=== PATIENT | male | born 1940 | race Caucasian/White ===

== ENCOUNTER 2021-02-04 11:29 | Emergency (ER) | payer OTHER, MEDICARE, SELFPAY ==
[2021-02-04 11:36] VITALS: BP 152/76; PULSE 100; RESP 18; TEMP 36.7; O2SAT 98; BMI 25.8
[2021-02-04 12:57] LABS: COVID-19 Test Negative (Negative)
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
--- NOTE | 2021-02-04 13:53 | MHC.CM.ED ---
Received case management consult from [facility] RO[facility]. Patient came to ER for a Covid screen. Per family patient was supposed to go to [facility] for short term rehab but needed a Covid screen. Covid is negative. Referral to [facility] made via [employer]. Patient accepted at [facility] and can leave ER at 3pm. [facility] booked. Med [facility] with chart. Patient, Etelvina ERVIN and Sunshine ROCHA aware. Continue to monitor for d/c needs.
[2021-02-04 14:00] VITALS: RESP 16
--- NOTE | 2021-02-04 14:02 | PC.NURSE ---
pt dc. plan for chair guicho to str. to be here by 1500
== END 2021-02-04 15:45 | disposition home or self-care (01) ==
PROVIDERS: Physician Assistant; Emergency Provider Emergency Medicine; PCP Physician Assistant Medical
DX: Z20.822 Contact with and (suspected) exposure to COVID-19 (principal); I12.9 Hypertensive chronic kidney disease with stage 1 through stage 4 chronic kidney disease, or unspecified chronic kidney disease; N18.9 Chronic kidney disease, unspecified; D64.9 Anemia, unspecified
CPT/HCPCS: 36415; 87635; 99283; 99284

== ENCOUNTER 2022-05-25 11:48 | Emergency (ER) | payer OTHER, SELFPAY ==
--- NOTE | ~2022-05-25 | XR_ITS ---
Indication: Pain, no trauma EXAMINATION: Left hand. 3 views Findings; Flexion at the level of the fingers limits evaluation. Degenerative changes are noted in the PIP and DIP joints here. There is no evidence for an acute fracture or dislocation. Some degeneration at the base of the thumb is also noted. No convincing evidence for an acute bony erosion. XR/XR hand wrist LT IMPRESSION: Degenerative changes. No acute finding.
[2022-05-25 12:01] VITALS: BP 140/78; PULSE 80; RESP 19; TEMP 36.6; O2SAT 98; BMI 24.2
[2022-05-25 13:09] LABS: MANUAL DIFF FLAG NO
[2022-05-25 13:16] LABS: Basophils Percent Auto 0.2 % (0-2); Eosinophils Absolute Auto 0.1 X10*3/uL (0.0-0.4); Eosinophils Percent Auto 0.6 % (0-4); Hemoglobin 13.6 g/dl (14.0-18.0); Imm Gran Abs Auto 0.06 X10*3/uL (0.00-0.03); Imm Gran Pct Auto 0.7 % (0.0-0.4); Lymphocytes Absolute Auto 0.9 X10*3/uL (1.2-4.9); Lymphocytes Percent Auto 9.9 % (20-40); Mean Corpuscular HGB Conc 33.2 g/dl (31.0-36.0); Mean Corpuscular Hemoglobin 30.9 pg (27.0-33.0); Mean Corpuscular Volume 93.2 fL (80.0-98.0); Mean Platelet Volume 10.4 fL (9.4-12.4); Monocytes Percent Auto 11.9 % (2-11); Neutrophils Absolute Auto 6.7 x10*3/uL (2.0-8.3); Neutrophils Percent Auto 76.7 % (45-73); Platelet Count 187 X10*3/uL (160-400); Red Cell Distribution Width 12.6 % (11.0-16.0); White Blood Count 8.7 X10*3/uL (4.8-10.8)
[2022-05-25 13:20] LABS: Appearance Urine CLEAR; Color Urine YELLOW; Glucose Urine UA NEG (NEG); Leukocyte Esterase Urine NEG (NEG); Nitrite Urine NEG (NEG); PH 5.5 (5.0-8.0); Specific Gravity - Urine 1.025 (1.005-1.025); Urine Blood NEG (NEG); Urine Ketones NEG (NEG); Urine Protein NEG (NEG-TRACE)
[2022-05-25 13:24] LABS: Anion Gap 12 (12-20); Blood Urea Nitrogen 23 mg/dL (9-16); Calcium 9.1 mg/dL (8.4-10.2); Carbon Dioxide 28 mmol/L (22-29); Chloride 100 mmol/L (96-108); Creatinine Clr Calc Pharmacy 43.5; Estimated Glomerular Filt Rate 59; Glucose Random 153 mg/dL (60-115); Potassium 3.8 mmol/L (3.3-5.1); Sodium 136 mmol/L (135-145)
== END 2022-05-25 19:27 | disposition left against medical advice (07) ==
PROVIDERS: Emergency Provider Emergency Medicine; PCP Physician Assistant Medical
DX: M79.642 Pain in left hand (principal); M54.50 Low back pain, unspecified; M25.532 Pain in left wrist; Z79.899 Other long term (current) drug therapy
CPT/HCPCS: 36415; 73110; 73130; 80048; 81003; 85025; 99282; 99283

== ENCOUNTER 2023-06-30 08:00 | Emergency (ER) | payer OTHER, SELFPAY ==
--- NOTE | ~2023-06-30 | XR_ITS ---
EXAMINATION: XR ELBOW, LEFT CLINICAL INFORMATION: Left elbow pain status post fall. COMPARISON: None available. TECHNIQUE: AP, lateral, and oblique views of the left elbow. FINDINGS: There is a moderate-sized posterior olecranon spur. A small osseous fragment is seen along the posterior superior margin of the spur. Moderate adjacent dorsal soft tissue swelling is seen. Possible small joint effusion. The proximal radius is intact. Mild degenerative calcifications adjacent to the medial humeral epicondyle. XR/XR elbow LT 2V IMPRESSION: 1. Moderate-sized posterior olecranon spur with moderate adjacent dorsal soft tissue swelling. A small osseous fragment along the posterior superior margin of the spur could represent an avulsion fracture of indeterminate age. Correlate with physical exam. 2. Possible small joint effusion. No overt acute fracture.
--- NOTE | ~2023-06-30 | XR_ITS ---
EXAMINATION: XR ANKLE, LEFT CLINICAL INFORMATION: Status post fall with tenderness. COMPARISON: None available. TECHNIQUE: AP, lateral, and mortise views of the left ankle. FINDINGS: Minimal tibiotalar degenerative joint changes are seen. No acute fracture or dislocation. The tarsal bones are normally aligned. The soft tissues are unremarkable. Mild to moderate atherosclerosis is noted. XR/XR ankle LT 2V IMPRESSION: Minimal tibiotalar degenerative joint changes. No acute fracture.
--- NOTE | ~2023-06-30 | XR_ITS ---
EXAMINATION: XR WRIST, LEFT XR HAND, LEFT CLINICAL INFORMATION: And wrist pain status post fall. COMPARISON: None available. TECHNIQUE: PA, lateral, and oblique views of the left wrist and PA, lateral, and oblique views of the left hand FINDINGS: LEFT WRIST: The bones and soft tissues are normal. No fracture. Alignment is anatomic. Joint spaces are maintained. No erosions or soft tissue calcifications. LEFT HAND: The bones and soft tissues are normal. No fracture. Alignment is anatomic. Mild distal interphalangeal degenerative joint changes are seen in the third and fifth digits. No erosions or soft tissue calcifications. Mild to moderate soft tissue swelling is seen. XR/XR hand wrist LT IMPRESSION: 1. Mild to moderate soft tissue swelling without overt acute fracture. 2. Mild distal interphalangeal degenerative joint changes in the third and fifth digits most consistent with osteoarthritis.
[2023-06-30 08:14] VITALS: BP 141/64; PULSE 99; RESP 19; TEMP 36.6; O2SAT 98; BMI 26.0
--- NOTE | 2023-06-30 08:56 | ED_ITS ---
HPI - General Adult General Chief complaint: General Medical Stated complaint: L Hand ? Infection Time Seen by Provider: 06/30/23 08:56 Source: patient Mode of arrival: ambulatory Limitations: no limitations History of Present Illness HPI narrative: Patient is an 83-year-old male with history of HTN, CKD, and anemia presenting to the emergency department with complaint of pain and swelling to left elbow, wrist, and hand as well as left ankle pain after a fall 5 days prior. States it was a trip and fall. Denies hitting head. Denies loss of consciousness. Denies head, neck, or back pain. Denies headaches or changes in vision. Reports hand/wrist is primary concern. Reports he is unable to fully extend elbow, decreased ROM to fingers of left hand. Denies any numbness or tingling to extremities. MD complaint: left elbow, wrist, hand, and ankle pain Onset (ago): day(s) Location: upper extremity and lower extremity Radiation: non-radiation Severity: moderate Quality: aching Pain Consistency: constant Relieving factors: rest Exacerbating factors: movement Associated symptoms: denies other symptoms Treatments prior to arrival: none Related Data Allergies Allergy/AdvReac Type Severity Reaction Status Date / Time No Known Allergies Allergy Verified 06/30/23 08:13 Review of Systems Review of Systems: As per HPI. Yes all other systems are reviewed and are negative Constitutional: Constitutional: Reports as per HPI [facility] Past Medical History Medical History (Updated 06/30/23 @ 10:13 by Betsy Albrecht NP) Anemia CKD (chronic kidney disease) HTN (hypertension) Social History Social History Alcohol intake: never Advance Directives: No Physical Exam ED Vital Signs: Vital Signs - 24 hr 06/30/23 08:14 Temperature 98 F Pulse Rate 99 Respiratory Rate 19 Blood Pressure 141/64 H Pulse Oximetry 98 Oxygen Delivery Method Room Air BMI result Body Mass Index 26.0 Vital signs have been reviewed and appear to be correct. Blood pressure mildly elevated. Heart rate normal. Respiratory rate normal. Temperature normal. Oxygen saturation normal. Const General: cooperative, healthy appearing and no acute distress Orientation/consciousness: oriented to person, oriented to place, oriented to time and patient oriented x3 Limitations: no limitations HENMT Head: Yes normocephalic and Yes atraumatic Ears: external ears normal General nose exam: Normal external nose present Face and sinus: Yes face symmetric Mouth: oropharynx normal and moist mucous membranes Throat: Yes uvula midline Eyes Pupils: Equal, round and reactive pupils present Neck Neck: Yes normal visual inspection and Yes supple Resp Effort & Inspection: normal respiratory effort and able to speak in complete sentences Auscultation: clear to auscultation bilaterally Cardio Rate: regular rate Rhythm: regular rhythm Heart sounds: S1 normal heart sound present and S2 normal heart sound present GI Palpation (GI): Soft to palpation and nontender Auscultation: normoactive bowel sounds General: Yes no CVA tenderness Back/Spine/Pelvis Back: no CVA tenderness Skin General skin exam: elasticity normal and turgor normal Neuro General: oriented to person, oriented to place, oriented to time, patient oriented x3, moves all extremities, no focal motor deficits and CN's II-XI intact bilaterally Cranial nerves: Yes Equal, round and reactive pupils present Cognition (Neuro): normal cognition Extrem General: Yes full ROM, Yes no pedal edema and Yes no calf tenderness Right upper extremity: normal to inspection, full ROM and normal capillary refill Left upper extremity: elbow/forearm Details: abnormal to inspection Details: olecranon swelling, tenderness Location: of the olecranon, abnormal ROM Details: with range as follows (normal flexion, slightly decreased ROM with extension) and distal pulses intact; no unusual warmth, no abrasions, no lacerations, no ecchymosis and no crepitus, wrist forearm distal Details: swelling Location: of the dorsal wrist, abnormal ROM Details: with range as follows (limited in all directions), normal vascular exam and radial pulse present; no tenderness, no ecchymosis and no crepitus and hand Details: normal capillary refill, neurosensory exam normal, tenderness Location: of the dorsal hand Location: over the 4th metacarpal and over the 5th metacarpal, abnormal ROM of finger Details: unable to flex or extend (very limited ROM all fingers) Location: of all digits and swelling Location: of the dorsal hand Location: distally, over the 4th digit and over the 5th metacarpal Right lower extremity: normal to inspection, full ROM and normal capillary refill Left lower extremity: normal to inspection, full ROM, normal capillary refill and ankle Details: normal to inspection and normal ROM; no tenderness and no ecchymosis Psych Mental Status: mental status grossly normal Affect: normal affect Thought process: Normal thought process present Medical Decision Making Medical Decision Making MDM Narrative: Patient is an 83-year-old male with history of HTN, CKD, and anemia presenting to the emergency department with complaint of pain and swelling to left elbow, wrist, and hand as well as left ankle pain after a fall 5 days prior. On exam patient is awake, A+Ox3, VS WNL, afebrile, normal neurological exam without focal deficits, swelling over olecranon of left elbow, swelling to distal left wrist with slightly limited ROM, swelling to left dorsal hand with limited ROM all fingers, 2+ radial pulse, normal inspection of left ankle, no tenderness, patient ambulating with steady gait. Given reported symptoms and physical exam findings, initial differential includes fracture of elbow/wrist/hand/ankle, olecranon bursitis, contusion. X-ray notable for degenerative changes to left hand and left ankle, small avulsion fracture of left olecranon. My interpretation is in agreement with the radiologist's interpretation. Spoke with Nicol from Ortho who recommends sling for 2 days as well as gentle [id number] exercises. Will refer patient to Ortho for follow-up. Return precautions discussed at bedside. Advised patient to utilize Tylenol as needed for discomfort. Patient verbalized understanding of and agreement with plan. Differential Diagnosis Differential Diagnoses: The differential diagnosis associated with the presentation includes As per MDM. Consult Healthcare Provider Management of the patient was discussed with: [employer] (morena Camarena PA) Independent Interpretation I performed an independent interpretation of an: Plain X-Ray Interpretation: No acute ankle fracture; possible avulsion fracture of left olecranon spur with possible small joint effusion; degenerative changes to left hand, no overt fracture Radiology Impression Discussion of test interpretation with radiology: I have reviewed the radiologist's reading. Radiologist Impression: XR/XR elbow LT 2V IMPRESSION: 1.? Moderate-sized posterior olecranon spur with moderate adjacent dorsal soft tissue swelling. A small osseous fragment along the posterior superior margin of the spur could represent an avulsion fracture of indeterminate age. Correlate with physical exam. 2.? Possible small joint effusion. No overt acute fracture. XR/XR ankle LT 2V IMPRESSION: Minimal tibiotalar degenerative joint changes. No acute fracture. XR/XR hand wrist LT IMPRESSION: 1.? Mild to moderate soft tissue swelling without overt acute fracture. ? 2.? Mild distal interphalangeal degenerative joint changes in the third and fifth digits most consistent with osteoarthritis. External Record Review External record reviewed: Inpatient record, Office record and Outpatient record Discharge Plan Discharge Clinical Impression: Closed olecranon fracture Patient Disposition: Home, Self-Care Instructions: Elbow Fracture (ED), How to Use a Sling (ED) Additional Instructions: You were evaluated in the emergency department today for injuries after a fall 5 days ago. Your x-ray revealed a small fracture to the olecranon which is a bone in your elbow. ONLY WEAR THE SLING FOR 2 DAYS, THEN DISCONTINUE USING THE SLING. You should perform gentle [id number] exercises by bending and straightening your elbow several times daily to prevent stiffening. Please follow-up wit orthopedics, their information is in your DISCHARGE INSTRUCTIONS, YOU WILL NEED TO CALL THEM FOR AN APPOINTMENT. Return to the emergency department for worsening pain, decreasing range of motion, new redness or swelling to your elbow or hand, new numbness or tingling, new weakness, or any other concerning symptoms. Referrals: [facility] [Provider Group]
== END 2023-06-30 10:26 | disposition home or self-care (01) ==
PROVIDERS: Emergency Provider Emergency Medicine; PCP Physician Assistant Medical
DX: S52.022A Displaced fracture of olecranon process without intraarticular extension of left ulna, initial encounter for closed fracture (principal); W01.0XXA Fall on same level from slipping, tripping and stumbling without subsequent striking against object, initial encounter; M25.422 Effusion, left elbow; I12.9 Hypertensive chronic kidney disease with stage 1 through stage 4 chronic kidney disease, or unspecified chronic kidney disease; N18.9 Chronic kidney disease, unspecified; D64.9 Anemia, unspecified; Y93.9 Activity, unspecified; Y92.9 Unspecified place or not applicable; Y99.9 Unspecified external cause status
CPT/HCPCS: 73070; 73110; 73130; 73600; 99282; 99283

== ENCOUNTER 2023-09-26 06:00 | Emergency (ER) | payer OTHER, SELFPAY ==
--- NOTE | 2023-09-26 | ECG_ITS ---
Test Reason : FALL Blood Pressure : / mmHG Vent. Rate : 070 BPM Atrial Rate : 070 BPM P-R Int : 176 ms QRS Dur : 108 ms QT Int : 388 ms P-R-T Axes : 004 -40 046 degrees QTc Int : 419 ms Normal sinus rhythm Left anterior fascicular block RSR' or QR pattern in V1 suggests right ventricular conduction delay Minimal voltage criteria for LVH, may be normal variant ( R in aVL ) Abnormal ECG When compared with ECG of 08-MAR-2018 07:24, No significant changes seen Referred By: Generic ED Physician Electronically Signed By:MAIDA ENRIQUEZ MD
--- NOTE | ~2023-09-26 | XR_ITS ---
EXAMINATION: XR chest 1V CLINICAL INFORMATION: Fall COMPARISON: 2017 TECHNIQUE: XR chest 1V Tubes and lines: None Lungs and pleura: Except for minimal probably chronic increased interstitial lung marking, lungs show no evidence of consolidation pneumonia. Heart and mediastinum: The mediastinum is within normal limits.. Bones/soft tissue: Skeletal structures included are normal for patient's age. XR/XR chest 1V IMPRESSION: * No radiographic evidence of acute cardiopulmonary disease. * Minimal increased interstitial lung marking, no evidence of acute infiltrate or failure.
--- NOTE | ~2023-09-26 | XR_ITS ---
EXAMINATION: XR HIP, LEFT , AP pelvis CLINICAL INFORMATION: Fall COMPARISON: None available at the time of this dictation. TECHNIQUE: Frontal and lateral views of the hip acquired. , AP pelvis FINDINGS: There is no evidence of acute fracture or dislocation. Partially included Hardware of the right femur rods in place intact. There are mild degenerative arthritic changes of the hip evident by sclerotic changes of the acetabular roof and narrowing of the joint space. Mild degenerative changes of the symphysis pubis. Mild degenerative changes of the SI joints. Adjacent pubic rami are intact. Surrounding soft tissues are unremarkable. XR/XR hip LT w PEL1V IMPRESSION: * No radiographic evidence of acute fracture. * Mild degenerative arthritis. * Partially included hardware right femur.
--- NOTE | ~2023-09-26 | CT_ITS ---
CT head/brain wo IV con CLINICAL INFORMATION: Reason for Exam ams COMPARISON: No prior CT scan available for comparison. TECHNIQUE: Department standard protocol. This CT examination was performed using dose optimization techniques as appropriate, variously including the following: *Automated exposure control *Adjustment of mA and/or kV according to patient size (this includes techniques or standardized protocols for targeted exams where dose is matched to indication/reason for exam; i.e. extremities or head) *Use of iterative reconstruction technique DLP: 691 mGy-cm FINDINGS: CEREBRAL HEMISPHERES: There is no evidence of intra-axial or extra-axial mass, hemorrhage or acute infarct. BRAIN PARENCHYMA: Deep white matter and paraventricular hypoattenuation, nonspecific; most likely changes secondary to chronic ischemia due to microvascular angiopathy. SUBDURAL SPACE: No bleed. BASAL GANGLIA AND PINEAL GLAND: Unremarkable VENTRICLES: Symmetric and normal in size. CEREBELLUM AND BRAINSTEM: No space-occupying mass, hemorrhage or acute infarct. CEREBELLOPONTINE ANGLES: No lesion found. ORBITS: No intraorbital mass. VESSELS: Unremarkable SKULL BASE: Unremarkable INCLUDED SINUSES AT SKULL BASE: Clear SKULL AND SKIN: Mildly displaced fractures of the nasal bones right and left. Indeterminant age. CT/CT head/brain wo IV con IMPRESSION: * Deep white matter and periventricular hypoattenuation, nonspecific; most likely sequela of chronic microvascular angiopathy ischemia. * No intracranial bleed. * Fractures of the right and left nasal bones is indeterminant age.
--- NOTE | ~2023-09-26 | XR_ITS ---
EXAMINATION: XR knee LT 3V CLINICAL INFORMATION: Reason for Exam fall, pain COMPARISON: None available at the time of this dictation. TECHNIQUE: frontal, lateral, tunnel and patella sunrise views 4 views. FINDINGS: BONES: No fracture or dislocation is present. JOINTS: Narrowing of joint spaces and developed osteophytes from the edges of articular surfaces suggest degenerative osteoarthritis. SOFT TISSUE: There is a small knee joint effusion and heavy vascular calcifications. XR/XR knee LT 3V IMPRESSION: No fracture. Mild tricompartment degenerative osteoarthritis. Small knee joint effusion. Heavy vascular calcifications.
--- NOTE | ~2023-09-26 | CT_ITS ---
EXAMINATION: CT CERVICAL SPINE CLINICAL INFORMATION: Reason for Exam ams COMPARISON: No prior CT available, TECHNIQUE: Computed axial sagittal and coronal images acquired using department's standard protocol. This CT examination was performed using dose optimization techniques as appropriate, variously including the following: *Automated exposure control *Adjustment of mA and/or kV according to patient size (this includes techniques or standardized protocols for targeted exams where dose is matched to indication/reason for exam; i.e. extremities or head) *Use of iterative reconstruction technique CONTRAST: None DLP: 285 mGy-cm FINDINGS: SKULL BASE: Visualized structures at skull base are normal, Included facial sinuses are clear, CERVICAL VERTEBRAE: Seven cervical vertebrae identified maintaining proper height, there is mild grade 1 anterior spondylolisthesis of C6 on C7. DISCS: Loss of disc height and developed osteophytes from the edges of endplates at multiple levels suggest underlying degenerative disc disease. C1-C2: No fracture. C2-C3: Facet joints arthropathy especially on the left side. No fracture. C3-C4: Facet joints arthropathy especially on the left side. No significant osseous a stenosis of central canal or neural foramen. No fractures. C4-C5: Advanced facet joints arthropathy on the left side. No significant stenosis of central canal or neural foramen. C5-C6: Bilateral facet joints arthropathy. No significant osseous central spinal or foraminal stenosis. No fracture. C6-C7: Degenerative disc disease and osteophyte ridge developed a fall edges of endplates. Bilateral facet joints arthropathy. No significant osseous stenosis of central canal or neural foramen. No fractures. C7-T1: There is no CT evidence of significant osseous narrowing of the central canal or neural foramen. PARAVERTEBRAL SOFT TISSUE: Paravertebral soft tissues unremarkable. CT/CT cervical spine wo IV con IMPRESSION: * No CT evidence of cervical spine fracture. * Loss of disc height and developed osteophytes from the edges of endplates at multiple levels suggest underlying degenerative disc disease. * Mild grade 1 anterior spondylolisthesis of C6 on C7.
[2023-09-26 06:04] VITALS: BP 142/70; BP 157/60; PULSE 60; PULSE 73; RESP 19; TEMP 36.8; O2SAT 94; O2SAT 95; BMI 22.8
--- NOTE | 2023-09-26 07:00 | ECG_ITS ---
Test Reason : pre-op Blood Pressure : / mmHG Vent. Rate : 065 BPM Atrial Rate : 065 BPM P-R Int : 180 ms QRS Dur : 100 ms QT Int : 398 ms P-R-T Axes : -27 -37 037 degrees QTc Int : 413 ms Sinus rhythm with Premature atrial complexes Left anterior fascicular block Minimal voltage criteria for LVH, may be normal variant ( R in aVL ) Abnormal ECG When compared with ECG of 26-SEP-2023 06:25, Premature atrial complexes are now Present Referred By: Amanda Patel Electronically Signed By:MAIDA ENRIQUEZ MD
--- NOTE | 2023-09-26 07:08 | ED_ITS ---
HPI - Fall General Chief Complaint: Fall Stated Complaint: fall Time Seen by Provider: 09/26/23 06:33 Source: patient Mode of arrival: ambulatory Limitations: no limitations History of Present Illness HPI Narrative: This is an 83-year-old male with a history of hypertension, CKD and anemia, alcohol use disorder who presents to the emergency room after a fall. Per report from nursing patient was seen yesterday at [facility] for multiple falls and was transferred to [facility] for further short-term rehab. Per nursing staff the patient had an unwitnessed fall at the short-term rehab this morning and seemed more confused from his baseline. Unclear what patient's baseline is. Patient arrives in a cervical collar. Patient is complaining of left hip pain. Related Data Allergies Allergy/AdvReac Type Severity Reaction Status Date / Time No Known Allergies Allergy Verified 09/26/23 06:04 Review of Systems 2 Review of Systems: Yes all other systems are reviewed and are negative Constitutional: Constitutional: Reports no additional constitutional complaints, Denies body ache(s), Denies chills, Denies fever(s), Denies headache(s) and Denies weakness Eyes: Eyes: Reports no additional eye complaints and Denies change in vision ENT: Reports system reviewed and no additional complaints, except as documented, Denies dizziness, Denies headache(s), Denies nasal congestion, Denies nasal discharge and Denies neck pain Cardiovascular: Cardiovascular: Reports no additional cardiovascular complaints, Denies chest pain, Denies leg edema and Denies dyspnea Respiratory: Respiratory: Reports no additional respiratory complaints, Denies cough and Denies dyspnea Gastrointestinal: Gastrointestinal: Reports no additional gastrointestinal complaints, Denies abdominal pain, Denies diarrhea, Denies nausea and Denies vomiting Genitourinary: Genitourinary: Denies urinary incontinence Musculoskeletal: Musculoskeletal: Reports no additional musculoskeletal complaints, Denies back pain, Reports arthralgias, Denies joint swelling, Reports limited range of motion, Denies neck pain, Denies numbness and Denies tingling Integumentary/Breasts: Skin/Breast: Reports system reviewed and no additional complaints, except as docu and Denies rash Neurologic: Reports system reviewed and no additional complaints, except as documented, Denies Abnormal speech present, Denies dizziness, Denies headache(s), Denies numbness, Denies tingling and Denies weakness PMFSH Past Medical History Attestation statement: The following information was validated with the patient. Source: old records reviewed and nursing notes reviewed Medical History CKD (chronic kidney disease) Anemia HTN (hypertension) Social History Social History Alcohol intake: former Smoked in Last 30 Days: No Use of substances other than those prescribed or required for medical reasons: No Any prior treatment program specific to substance use: No Advance Directives: No Advance Directives Information Provided: Yes Physical Exam 2 Vital Signs: Vital Signs: Last Vital Signs Temp 97.6 F 09/26/23 11:16 Pulse 70 09/26/23 11:16 Resp 22 H 09/26/23 11:16 BP 162/59 H 09/26/23 11:16 Pulse Ox 95 09/26/23 11:16 O2 Del Method Room Air 09/26/23 11:16 BMI result Body Mass Index 22.8 Const: Other: Cervical collar in place General: cooperative, healthy appearing, comfortable and no acute distress Orientation/consciousness: patient oriented x3 Limitations: no limitations HEENT: Head: Yes normal to inspection, No Duff's sign and No raccoon eyes Ears: hearing grossly normal bilaterally and TM's normal bilaterally General nose exam: Normal external nose present Face and sinus: Yes normal facial exam Mouth: Normal oral and palatal mucosa present Throat: Yes posterior oropharynx normal Eyes: General: appearance normal, both eyes and all related structures P upils: Equal, round and reactive pupils present Neck: Neck: Yes normal visual inspection Chest: Chest palpation & inspection: normal inspection of the chest Resp: Effort & Inspection: normal respiratory effort Auscultation: clear to auscultation bilaterally Cardio: Rate: regular rate Rhythm: regular rhythm Peripheral pulses: P eripheral pulses 2+ throughout GI: Inspection: Yes normal to inspection Palpation (GI): Soft to palpation and nontender Auscultation: normal bowel sounds Back/Spine/Pelvis: Thoracic/Lumbar Spine: thoracic and lumbar spine normal to inspection Skin: General skin exam: no rashes or lesions noted Neuro: General: patient oriented x3, moves all extremities, no focal motor deficits and normal sensation to monofilament Cranial nerves: Yes CN's II-XII intact bilaterally, Yes Equal, round and reactive pupils present, Yes Bilaterally intact EOM present, Yes Nystagmus not present, Yes Normal facial strength present and Yes Midline tongue present Cognition (Neuro): normal cognition Speech: No Abnormal speech present Motor exam (neuro): 5/5 motor strength present throughout Sensory Exam: Normal double simultaneous stimulation for sensation Extrem: Other: Multiple abrasions the lower extremities There is pain on palpation to the left lateral hip. The left lower extremity appears ?shortened. Normal distal pulses and sensation General: Yes normal to inspection Course Course Course Narrative: 914-CT head and cervical spine are negative. Cervical collar was removed. Of note there is a nasal fracture seen on CT head the patient will need this is not a new finding. Patient to have x-rays of hip Reevaluation(s) Reevaluation #1: Labs are unremarkable. EKG shows no ischemic changes. Imaging shows no acute fracture. Unclear why patient fell. However patient spent 6 days at [facility] for frequent falls, altered mental status and was discharged to short-term rehab yesterday. I do not feel that he would benefit from additional admission. Therefore he will be transferred back to [facility] Medications Administered Discontinued Medications Generic Name Dose Route Start Last Admin Trade Name Sulaiman PRN Reason Stop Dose Admin Morphine Sulfate 4 mg 09/26/23 07:00 09/26/23 08:27 Morphine Sulfate 4 Mg/Ml Cartridge IVPUSH 09/26/23 07:01 4 mg ONCE ONE Administration Protocol Ondansetron HCl 4 mg 09/26/23 07:00 09/26/23 08:27 Ondansetron Hcl 4 Mg/2 Ml Vial IVPUSH 09/26/23 07:01 4 mg ONCE ONE Administration Oxycodone HCl 5 mg 09/26/23 08:06 09/26/23 08:55 Oxycodone Hcl Immed Release 5 Mg Tablet PO 09/26/23 08:07 Not Given ONCE ONE Medical Decision Making Medical Decision Making [facility] Narrative: * This is an 83-year-old male with a history of hypertension, CKD and anemia, alcohol use disorder who presents to the emergency room after a fall.? Per report from nursing patient was seen yesterday at [facility] for multiple falls and was transferred to [facility] for further short-term rehab.? Per nursing staff the patient had an unwitnessed fall at the short-term rehab this morning and seemed more confused from his baseline.? Unclear what patient's baseline is.? Patient arrives in a cervical collar.? Patient is complaining of left hip pain. For me the patient is alert oriented x3. No overt neurological deficit. Cervical collar in place. Patient is able to tell me that he was getting up for bed when he tripped and fell. He tells me is a history of multiple falls. Tells me his history of ETOH use. He has not had an alcoholic beverage in more than 1 week. Multiple abrasions the lower extremities? There is pain on palpation to the left lateral hip.? The left lower extremity ?shortened. CMS normal distally Will obtain CT head and cervical spine, x-ray of the left hip and chest, labs, EKG Differential Diagnosis Differential Diagnoses: The differential diagnosis associated with the presentation includes Fracture, contusion, dislocation Admission/Observation Consideration of admission/observation: Escalation of care including admission/observation considered see course of care Lab Data MDM Lab Attestation statement: I reviewed the patient's lab results. 09/26/23 07:40 09/26/23 07:40 Labs: Lab Results 09/26/23 Range/Units 07:40 WBC 6.6 (4.8-10.8) X10*3/uL RBC 4.03 L (4.60-5.80) X10*6/uL Hgb 12.2 L (14.0-18.0) g/dl Hct 37.7 L (42.0-52.0) % MCV 93.5 (80.0-98.0) fL MCH 30.3 (27.0-33.0) pg MCHC 32.4 (31.0-36.0) g/dl RDW 14.0 (11.0-16.0) % Plt Count 260 D (160-400) X10*3/uL MPV 10.8 (9.4-12.4) fL Absolute Nucleated RBC 0.000 (0.0-0.012) X10*3/uL Nucleated RBC % (auto) 0.0 (0.0-0.2) /100WBC Sodium 139 (135-145) mmol/L Potassium 3.9 (3.3-5.1) mmol/L Chloride 106 (96-108) mmol/L Carbon Dioxide 24 (22-29) mmol/L Anion Gap 13 (12-20) BUN 23 H (9-16) mg/dL Creatinine 0.95 (0.5-1.4) mg/dL Estim Creat Clear Calc 60.1 Estimated GFR > 60 Random Glucose 127 H (60-115) mg/dL Calcium 9.0 (8.4-10.2) mg/dL Total Bilirubin 0.3 (0.0-1.0) mg/dL AST 25 (5-37) U/L ALT 23 (0-40) U/L Alkaline Phosphatase 103 (39-117) U/L Troponin I High Sens 12.3 (<3.5-35.0) ng/L Total Protein 6.8 (6.5-8.0) g/dL Albumin 3.5 (3.5-5.0) g/dL Independent Interpretation I performed an independent interpretation of an: EKG, Plain X-Ray and CT Scan Interpretation: I independently reviewed the CT scan of the head and cervical spine and agree with the radiology report I independently reviewed the x-rays and agree with the radiology report I independently reviewed the EKG which shows normal sinus rhythm with a rate of 65, normal MI, normal QRS, no acute Radiology Impression Discussion of test interpretation with radiology: I have reviewed the radiologist's reading. Radiologist Impression: [place] [address] CT Scan Report Signed Patient: Chirag Montgomery MR#: [id number] : 1940 Acct:[id number] Age/Sex: 83 / M ADM Date: 09/26/23 Loc: HO.ED Attending Dr: Ordering Physician: Amanda Quick NP Date of Service: 09/26/23 Procedure(s): CT cervical spine wo IV con Accession Number(s): [id number] cc: Physician,Unknown ; Amanda Quick NP~ EXAMINATION: CT CERVICAL SPINE CLINICAL INFORMATION: Reason for Exam ams COMPARISON: No prior CT available, TECHNIQUE: Computed axial sagittal and coronal images acquired using department's standard protocol. This CT examination was performed using dose optimization techniques as appropriate, variously including the following: *Automated exposure control *Adjustment of mA and/or kV according to patient size (this includes techniques or standardized protocols for targeted exams where dose is matched to indication/reason for exam; i.e. extremities or head) *Use of iterative reconstruction technique CONTRAST: None DLP: 285 mGy-cm FINDINGS: SKULL BASE: Visualized structures at skull base are normal, Included facial sinuses are clear, CERVICAL VERTEBRAE: Seven cervical vertebrae identified maintaining proper height, there is mild grade 1 anterior spondylolisthesis of C6 on C7. DISCS: Loss of disc height and developed osteophytes from the edges of endplates at multiple levels suggest underlying degenerative disc disease. C1-C2: No fracture. C2-C3: Facet joints arthropathy especially on the left side. No fracture. C3-C4: Facet joints arthropathy especially on the left side. No significant osseous a stenosis of central canal or neural foramen. No fractures. C4-C5: Advanced facet joints arthropathy on the left side. No significant stenosis of central canal or neural foramen. C5-C6: Bilateral facet joints arthropathy. No significant osseous central spinal or foraminal stenosis. No fracture. C6-C7: Degenerative disc disease and osteophyte ridge developed a fall edges of endplates. Bilateral facet joints arthropathy. No significant osseous stenosis of central canal or neural foramen. No fractures. C7-T1: There is no CT evidence of significant osseous narrowing of the central canal or neural foramen. PARAVERTEBRAL SOFT TISSUE: Paravertebral soft tissues unremarkable. CT/CT cervical spine wo IV con IMPRESSION: * No CT evidence of cervical spine fracture. * Loss of disc height and developed osteophytes from the edges of endplates at multiple levels suggest underlying degenerative disc disease. * Mild grade 1 anterior spondylolisthesis of C6 on C7. [address] [address] [address] Scan Report Signed Patient: Chirag Montgomery MR#: [id number] : 1940 Acct:[id number] Age/Sex: 83 / M ADM Date: 09/26/23 Loc: HO.ED Attending Dr: Ordering Physician: Amanda Quick NP Date of Service: 09/26/23 Procedure(s): CT head/brain wo IV con Accession Number(s): [id number] cc: Physician,Unknown ; Abdelrahman,Amanda IRON CUTTER~ CT head/brain wo IV con CLINICAL INFORMATION: Reason for Exam ams COMPARISON: No prior CT scan available for comparison. TECHNIQUE: Department standard protocol. This CT examination was performed using dose optimization techniques as appropriate, variously including the following: *Automated exposure control *Adjustment of mA and/or kV according to patient size (this includes techniques or standardized protocols for targeted exams where dose is matched to indication/reason for exam; i.e. extremities or head) *Use of iterative reconstruction technique DLP: 691 mGy-cm FINDINGS: CEREBRAL HEMISPHERES: There is no evidence of intra-axial or extra-axial mass, hemorrhage or acute infarct. BRAIN PARENCHYMA: Deep white matter and paraventricular hypoattenuation, nonspecific; most likely changes secondary to chronic ischemia due to microvascular angiopathy. SUBDURAL SPACE: No bleed. BASAL GANGLIA AND PINEAL GLAND: Unremarkable VENTRICLES: Symmetric and normal in size. CEREBELLUM AND BRAINSTEM: No space-occupying mass, hemorrhage or acute infarct. CEREBELLOPONTINE ANGLES: No lesion found. ORBITS: No intraorbital mass. VESSELS: Unremarkable SKULL BASE: Unremarkable INCLUDED SINUSES AT SKULL BASE: Clear SKULL AND SKIN: Mildly displaced fractures of the nasal bones right and left. Indeterminant age. CT/CT head/brain wo IV con IMPRESSION: * Deep white matter and periventricular hypoattenuation, nonspecific; most likely sequela of chronic microvascular angiopathy ischemia. * No intracranial bleed. * Fractures of the right and left nasal bones is indeterminant age. [place] [address] XRay Report Signed Patient: Chirag Montgomery MR#: [id number] : 1940 Acct:[id number] Age/Sex: 83 / M ADM Date: 09/26/23 Loc: HO.ED Attending Dr: Ordering Physician: Amanda Quick NP Date of Service: 09/26/23 Procedure(s): XR knee LT 3V Accession Number(s): [id number] cc: Physician,Unknown ; Amanda Quick NP~ EXAMINATION: XR knee LT 3V CLINICAL INFORMATION: Reason for Exam fall, pain COMPARISON: None available at the time of this dictation. TECHNIQUE: frontal, lateral, tunnel and patella sunrise views 4 views. FINDINGS: BONES: No fracture or dislocation is present. JOINTS: Narrowing of joint spaces and developed osteophytes from the edges of articular surfaces suggest degenerative osteoarthritis. SOFT TISSUE: There is a small knee joint effusion and heavy vascular calcifications. XR/XR knee LT 3V IMPRESSION: No fracture. Mild tricompartment degenerative osteoarthritis. Small knee joint effusion. Heavy vascular calcifications. [address] [address] XRay Report Signed Patient: Chirag Montgomery MR#: [id number] : 1940 Acct:[id number] Age/Sex: 83 / M ADM Date: 09/26/23 Loc: HO.ED Attending Dr: Ordering Physician: Lidia Smith DO Date of Service: 09/26/23 Procedure(s): XR hip LT w PEL1V Accession Number(s): [id number] cc: Lidia Smith DO; Physician,Unknown ~ EXAMINATION: XR HIP, LEFT , AP pelvis CLINICAL INFORMATION: Fall COMPARISON: None available at the time of this dictation. TECHNIQUE: Frontal and lateral views of the hip acquired. , AP pelvis FINDINGS: There is no evidence of acute fracture or dislocation. Partially included Hardware of the right femur rods in place intact. There are mild degenerative arthritic changes of the hip evident by sclerotic changes of the acetabular roof and narrowing of the joint space. Mild degenerative changes of the symphysis pubis. Mild degenerative changes of the SI joints. Adjacent pubic rami are intact. Surrounding soft tissues are unremarkable. XR/XR hip LT w PEL1V IMPRESSION: * No radiographic evidence of acute fracture. * Mild degenerative arthritis. * Partially included hardware right femur. [address] [address] XRay Report Signed Patient: Chirag Montgomery MR#: [id number] : 1940 Acct:[id number] Age/Sex: 83 / M ADM Date: 09/26/23 Loc: HO.ED Attending Dr: Ordering Physician: Amanda Quick NP Date of Service: 09/26/23 Procedure(s): XR chest 1V Accession Number(s): [id number] cc: Physician,Unknown ; Amanda Quick IRON CUTTER~ EXAMINATION: XR chest 1V CLINICAL INFORMATION: Fall COMPARISON: 2018 TECHNIQUE: XR chest 1V Tubes and lines: None Lungs and pleura: Except for minimal probably chronic increased interstitial lung marking, lungs show no evidence of consolidation pneumonia. Heart and mediastinum: The mediastinum is within normal limits.. Bones/soft tissue: Skeletal structures included are normal for patient's age. XR/XR chest 1V IMPRESSION: * No radiographic evidence of acute cardiopulmonary disease. * Minimal increased interstitial lung marking, no evidence of acute infiltrate or failure. Independent Historian Clinical information obtained from an independent historian. History obtained from or confirmed by: EMS External Record Review External record reviewed: Outside ED record Reviewed records from [facility]. Patient was admitted September 19 to September 25 for fall, nasal bone fracture, pneumonitis, altered mental status and transferred to [facility] rehab for further management. Discharge Plan Discharge Clinical Impression: Contusion of hip, left, Contusion of knee, left Patient Disposition: [facility] Transfer Details: [facility] Instructions: Contusion in Adults (ED), Hip Contusion (ED) Referrals: [facility] [Outside] Leanne Pearson MD [Physician] -
[2023-09-26 07:41] VITALS: BP 149/67; PULSE 66; RESP 16; TEMP 36.6; O2SAT 95
[2023-09-26 07:49] LABS: Hematocrit 37.7 % (42.0-52.0); Hemoglobin 12.2 g/dl (14.0-18.0); Mean Corpuscular HGB Conc 32.4 g/dl (31.0-36.0); Mean Corpuscular Hemoglobin 30.3 pg (27.0-33.0); Mean Corpuscular Volume 93.5 fL (80.0-98.0); Mean Platelet Volume 10.8 fL (9.4-12.4); Platelet Count 260 X10*3/uL (160-400); Red Blood Count 4.03 X10*6/uL (4.60-5.80); White Blood Count 6.6 X10*3/uL (4.8-10.8)
[2023-09-26 08:02] LABS: Alanine Aminotransferase 23 U/L (0-40); Albumin Level 3.5 g/dL (3.5-5.0); Alkaline Phosphatase 103 U/L (39-117); Anion Gap 13 (12-20); Aspartate Amino Transferase 25 U/L (5-37); Bilirubin Total 0.3 mg/dL (0.0-1.0); Blood Urea Nitrogen 23 mg/dL (9-16); Carbon Dioxide 24 mmol/L (22-29); Chloride 106 mmol/L (96-108); Creatinine Clr Calc Pharmacy 60.1; Estimated Glomerular Filt Rate > 60; Glucose Random 127 mg/dL (60-115); Potassium 3.9 mmol/L (3.3-5.1); Sodium 139 mmol/L (135-145); Total Protein 6.8 g/dL (6.5-8.0)
[2023-09-26 08:09] LABS: Troponin-I High Sensitivity 12.3 ng/L (<3.5-35.0)
--- NOTE | 2023-09-26 08:10 | PC.NURSE ---
attempted IV on pt x2, no success. requested po pain medication from ANTONIO Patel for pt. AZIZA Reid attempting IV currently on pt. awaiting xray.
[2023-09-26] MEDS: Morphine Sulfate 4 MG/ML CARTRIDGE IVPUSH (08:27)
[2023-09-26] MEDS: ondansetron HCL 4 MG/2 ML VIAL IVPUSH (08:27)
--- NOTE | 2023-09-26 08:30 | PC.NURSE ---
AZIZA Reid able to place IV to pt's left hand. pt medicated with IV medications per jan. held po oxycodone. ANTONIO Patel aware. awaiting x-ray. pt resting quietly on stretcher, sleeping in and out. pt offers no other complaints bveerley. rr even/unlabored. call jessica within pt reach. plan of care ongoing.
--- NOTE | 2023-09-26 09:17 | PC.NURSE ---
pt has small skin tear to left arm from fall. skin tear cleaned with normal saline, covered with non-adherant pad and wrapped in bandage.
[2023-09-26 11:16] VITALS: BP 162/59; PULSE 70; RESP 22; TEMP 36.4; O2SAT 95
--- NOTE | 2023-09-26 11:22 | PC.NURSE ---
Addendum entered by Kinjal Katz RN 09/26/23 11:30: LATE ENTRY Original Note: assumed care of pt at 0700. pt a&o to self and situation. not oriented to the year or where he is. pt currently in c-collar. awaiting CT results and x-ray. call jessica placed within pt reach. pt laying quietly on back in stretcher. rr even/unlabored. plan of care ongoing.
--- NOTE | 2023-09-26 11:31 | PC.NURSE ---
pt found trying to crawl out of bed to use bathroom. call jessica was within pt reach. pt currently in brief. redirected and given urinal. pt boosted and repositioned in bed. pt discharged. awaiting transport back to facility. side rails up, curtain open, call jessica within reach.
== END 2023-09-26 13:58 | disposition skilled nursing facility (03) ==
PROVIDERS: Emergency Provider Emergency Medicine
DX: S70.02XA Contusion of left hip, initial encounter (principal); S80.02XA Contusion of left knee, initial encounter; W06.XXXA Fall from bed, initial encounter; Z91.81 History of falling; Y93.89 Activity, other specified; Y92.122 Bedroom in nursing home as the place of occurrence of the external cause; Y99.9 Unspecified external cause status
CPT/HCPCS: 36415; 70450; 71045; 72125; 73502; 73562; 80053; 84484; 85027; 93005; 96374; 96375; 99285; J2270; J2405

== ENCOUNTER 2023-10-03 20:01 | Observation (INO) | payer OTHER, SELFPAY ==
--- NOTE | 2023-10-03 | ECG_ITS ---
Test Reason : FALL Blood Pressure : / mmHG Vent. Rate : 096 BPM Atrial Rate : 096 BPM P-R Int : 190 ms QRS Dur : 090 ms QT Int : 340 ms P-R-T Axes : 000 -48 034 degrees QTc Int : 429 ms Sinus rhythm with Premature atrial complexes Left anterior fascicular block RSR' or QR pattern in V1 suggests right ventricular conduction delay Abnormal ECG When compared with ECG of 26-SEP-2023 07:22, Heart rate has increased Referred By: Generic ED Physician Electronically Signed By:MAIDA ENRIQUEZ MD
--- NOTE | ~2023-10-03 | CT_ITS ---
EXAMINATION: CT HEAD WITHOUT CONTRAST CT CERVICAL SPINE WITHOUT CONTRAST CLINICAL INFORMATION: Reason for Exam Fall COMPARISON: CT of the head and cervical spine done on 09/26/2023. TECHNIQUE: Imaging was performed from the skull base to vertex without intravenous administration of contrast. In addition, helical noncontrast CT imaging was acquired through the cervical spine and source images were reviewed along with axial reconstructions and sagittal and coronal MPRs. This CT examination was performed using dose optimization techniques as appropriate, variously including the following: *Automated exposure control. *Adjustment of mA and/or kV according to patient size (this includes techniques or standardized protocols for targeted exams where dose is matched to indication/reason for exam; i.e. extremities or head). *Use of iterative reconstruction technique. Total exam dose-length product 740 mGy-cm FINDINGS: HEAD: No intracranial mass, hemorrhage, or midline shift is visualized. The ventricles and sulci are proportionate, unchanged. No extra-axial collections are identified. The paranasal sinuses and mastoid air cells are well aerated. CERVICAL SPINE: There is no evidence of acute cervical spine fracture. Vertebral bodies remain normal in height, and alignment is anatomic. Multilevel degenerative spondylosis and moderate diffuse osteopenia. No significant change. Ligamentous nuchae ossification is seen. No prevertebral or paravertebral soft tissue abnormality is identified. Limited assessment of the lung apices is unremarkable. CT/CT head/brain wo IV con IMPRESSION: 1. No acute intracranial pathology. 2. No CT evidence of acute cervical spine fracture or traumatic subluxation. 3. No significant change since prior study dated 09/26/2023.
--- NOTE | ~2023-10-03 | CT_ITS ---
EXAMINATION: CT ABDOMEN AND PELVIS WITHOUT CONTRAST CLINICAL INFORMATION: Acute renal failure, rule out obstructive uropathy COMPARISON: None available. TECHNIQUE: Multidetector volumetric imaging was performed from the superior aspect of the liver through the pubic symphysis. Sagittal and coronal reformatted images were obtained on the technologist's workstation. This CT examination was performed using dose optimization techniques as appropriate, variously including the following: *Automated exposure control *Adjustment of mA and/or kV according to patient size (this includes techniques or standardized protocols for targeted exams where dose is matched to indication/reason for exam; i.e. extremities or head) *Use of iterative reconstruction technique DLP: 464 mGy-cm FINDINGS: LUNG BASES: The visualized lung bases are unremarkable. LIVER, GALLBLADDER, AND BILIARY TREE: The liver is normal in size, shape, and attenuation. No focal hepatic lesion or biliary ductal dilatation is identified on this noncontrast exam. There is suggestion of gallstone versus adenomyomatosis of the gallbladder fundus. No surrounding inflammation or wall thickening. PANCREAS: Grossly unremarkable. SPLEEN: Unremarkable. ADRENAL GLANDS: Unremarkable. KIDNEYS AND URETERS: No hydronephrosis or obstructing calculus bilaterally. Left renal cysts noted; no follow-up recommended. BLADDER: Partially distended with mild diffuse mural prominence. Bladder diverticula noted. GASTROINTESTINAL TRACT: Small hiatal hernia. Colonic diverticulosis is noted. The small and large bowel are otherwise unremarkable without evidence of obstruction or pericolonic inflammatory change. The appendix is unremarkable. No free fluid or free air is seen. ABDOMINAL WALL: Bilateral fat-containing inguinal hernias. LYMPH NODES: Normal. VASCULAR: There is atherosclerotic calcification along the aorta and iliac arteries. PELVIC VISCERA: The prostate gland is enlarged, measuring 5.3 cm in transverse diameter. OSSEOUS STRUCTURES: Degenerative changes are noted in the spine and hips. Partially visualized hardware in the right femur. CT/CT abdomen pelvis wo IV con IMPRESSION: 1. No hydronephrosis or obstructing calculus. 2. Mild diffuse mural prominence of the urinary bladder, which could be secondary to chronic outlet obstruction in the setting of an enlarged prostate gland. Cystitis could have a similar appearance. 3. Suggestion of gallstone versus adenomyomatosis of the gallbladder fundus. 4. Small hiatal hernia.
--- NOTE | ~2023-10-03 | CT_ITS ---
EXAMINATION: CT HEAD WITHOUT CONTRAST CT CERVICAL SPINE WITHOUT CONTRAST CLINICAL INFORMATION: Reason for Exam Fall COMPARISON: CT of the head and cervical spine done on 09/26/2023. TECHNIQUE: Imaging was performed from the skull base to vertex without intravenous administration of contrast. In addition, helical noncontrast CT imaging was acquired through the cervical spine and source images were reviewed along with axial reconstructions and sagittal and coronal MPRs. This CT examination was performed using dose optimization techniques as appropriate, variously including the following: *Automated exposure control. *Adjustment of mA and/or kV according to patient size (this includes techniques or standardized protocols for targeted exams where dose is matched to indication/reason for exam; i.e. extremities or head). *Use of iterative reconstruction technique. Total exam dose-length product 740 mGy-cm FINDINGS: HEAD: No intracranial mass, hemorrhage, or midline shift is visualized. The ventricles and sulci are proportionate, unchanged. No extra-axial collections are identified. The paranasal sinuses and mastoid air cells are well aerated. CERVICAL SPINE: There is no evidence of acute cervical spine fracture. Vertebral bodies remain normal in height, and alignment is anatomic. Multilevel degenerative spondylosis and moderate diffuse osteopenia. No significant change. Ligamentous nuchae ossification is seen. No prevertebral or paravertebral soft tissue abnormality is identified. Limited assessment of the lung apices is unremarkable. CT/CT cervical spine wo IV con IMPRESSION: 1. No acute intracranial pathology. 2. No CT evidence of acute cervical spine fracture or traumatic subluxation. 3. No significant change since prior study dated 09/26/2023.
[2023-10-03 20:06] VITALS: BP 95/43; PULSE 105; RESP 18; O2SAT 93; O2SAT 95; BMI 26.1
[2023-10-03 20:10] VITALS: BP 97/42; PULSE 101; RESP 22; TEMP 36.6; O2SAT 93
--- NOTE | 2023-10-03 20:49 | PC.NURSE ---
tech bedside obtaining ekg and labs at this time.
[2023-10-03 20:54] LABS: MANUAL DIFF FLAG NO
--- NOTE | 2023-10-03 20:56 | PC.NURSE ---
pt [place] from [facility] after a second fall today. staff at facility state pt had a fall early this afternoon, and then had another fall prior to arrival to the ED. according to staff pt usually a&ox3. currently pt is unable thinks he is in [place] and thinks the year is 1999. pt has previous nose fracture from previous fall which led pt to enter rehab. pt has c collar in place, reporting 8/10 neck pain. pt has small scrape on left forehead from fall this morning. EMS placed 22 in left forearm and gave pt 250cc of normal saline. pt normal sinus on tele 89-92. 94% room air.
[2023-10-03 20:57] LABS: Basophils Absolute Auto 0.1 X10*3/uL (0.0-0.2); Basophils Percent Auto 0.6 % (0-2); Eosinophils Percent Auto 0.4 % (0-4); Hematocrit 35.1 % (42.0-52.0); Hemoglobin 11.7 g/dl (14.0-18.0); Imm Gran Pct Auto 1.2 % (0.0-0.4); Lymphocytes Absolute Auto 0.4 X10*3/uL (1.2-4.9); Lymphocytes Percent Auto 4.3 % (20-40); Mean Corpuscular HGB Conc 33.3 g/dl (31.0-36.0); Mean Corpuscular Hemoglobin 30.5 pg (27.0-33.0); Mean Corpuscular Volume 91.4 fL (80.0-98.0); Mean Platelet Volume 10.1 fL (9.4-12.4); Monocytes Absolute Auto 1.2 X10*3/uL (0.1-1.2); Monocytes Percent Auto 13.9 % (2-11); Neutrophils Absolute Auto 6.7 x10*3/uL (2.0-8.3); Neutrophils Percent Auto 79.6 % (45-73); Platelet Count 451 X10*3/uL (160-400); Red Blood Count 3.84 X10*6/uL (4.60-5.80); Red Cell Distribution Width 13.8 % (11.0-16.0); White Blood Count 8.4 X10*3/uL (4.8-10.8)
[2023-10-03 21:10] LABS: Alanine Aminotransferase 32 U/L (0-40); Albumin Level 3.6 g/dL (3.5-5.0); Alkaline Phosphatase 89 U/L (39-117); Anion Gap 15 (12-20); Aspartate Amino Transferase 25 U/L (5-37); Bilirubin Total 0.2 mg/dL (0.0-1.0); Blood Urea Nitrogen 46 mg/dL (9-16); Calcium 8.8 mg/dL (8.4-10.2); Carbon Dioxide 21 mmol/L (22-29); Chloride 105 mmol/L (96-108); Creatinine Clr Calc Pharmacy 24.7; Estimated Glomerular Filt Rate 31; Glucose Random 140 mg/dL (60-115); Potassium 4.8 mmol/L (3.3-5.1); Sodium 136 mmol/L (135-145)
[2023-10-03 22:27] VITALS: BP 96/51; PULSE 68; RESP 16; O2SAT 93
--- NOTE | 2023-10-03 22:33 | ED.FALL ---
HPI - Fall General Chief Complaint: Fall Stated Complaint: FALLS, -LOC, AMS Time Seen by Provider: 10/03/23 22:07 Source: patient and EMS Mode of arrival: EMS Limitations: no limitations History of Present Illness HPI Narrative: 83-year-old male came in by ambulance from rehab after sustained multiple falls over the last 2 days, the last fall was before coming to the hospital today patient overall is unable to give the history of his fall patient is complaining of neck pain. No other complaints otherwise in particular no CP or SOB. Related Data Home Medications Medication Instructions Recorded Confirmed acetaminophen 325 mg tablet 650 mg PO 10/04/23 (Tylenol) Allergies Allergy/AdvReac Type Severity Reaction Status Date / Time No Known Allergies Allergy Verified 10/03/23 20:13 Review of Systems Review of Systems: All other systems are reviewed and are negative Constitutional: Reports as per HPI and Reports no additional constitutional complaints Eyes: Reports as per HPI and Reports no additional eye complaints Reports system reviewed and no additional complaints, except as documented Cardiovascular: Reports as per HPI and Reports no additional cardiovascular complaints Respiratory: Reports as per HPI and Reports no additional respiratory complaints Gastrointestinal: Reports as per HPI and Reports no additional gastrointestinal complaints Genitourinary: Reports no additional female genitourinary complaints Musculoskeletal: Reports no additional musculoskeletal complaints Skin/Breast: Reports system reviewed and no additional complaints, except as docu Psychiatric: Reports no additional psychiatric complaints Endocrine: Reports no additional endocrine complaints Hematologic/Lymphatic: Reports no additional hematologic/lymphatic complaints Allergic/Immunologic: Reports no additional allergic/immunologic complaints Reports system reviewed and no additional complaints, except as documented and Reports Abnormal speech present [facility] Past Medical History Medical History CKD (chronic kidney disease) Anemia HTN (hypertension) Social History Alcohol intake: former Smoked in Last 30 Days: No Use of substances other than those prescribed or required for medical reasons: No Advance Directives: No Advance Directives Information Provided: No Physical Exam Vital Signs: Vital Signs: Last Vital Signs Temp 97.8 F 10/03/23 20:10 Pulse 99 10/04/23 00:04 Resp 16 10/03/23 22:27 BP 157/125 H 10/04/23 00:04 Pulse Ox 93 10/03/23 22:27 O2 Del Method Room Air 10/03/23 22:27 BMI result Body Mass Index 26.1 Vital signs have been reviewed and appear to be correct. Blood pressure elevated. Heart rate normal. Respiratory rate normal. Temperature normal. Oxygen saturation normal. Appearance: Alert. Oriented X2 disoriented to time. No acute distress. Head: Normal external exam. Normocephalic. Small less than 1 cm superficial laceration to the left forehead. No Duff signs noted. No raccoon eyes noted Eyes: PERRLA. EOMI. Conjunctiva and sclera normal. Eyelids normal. ENT: TM's Normal. Pharynx normal. Uvula midline. Moist mucous membranes. No trismus noted. No drooling noted. No muffled voice noted. Neck: Normal inspection. Neck supple. FROM. No adenopathy. Thyroid Normal. No meningeal signs. No neck mass noted. CVS: Normal heart rate and rhythm. Heart sound normal. No murmurs noted. Pulses normal throughout. Respiratory: No respiratory distress. Painless inspiration. Breath sounds normal. No wheezes/rales/rhonchi noted. Chest nontender. No accessory muscle usage noted or decreased air movement noted. Abdomen: Soft and nontender. Bowel sounds normal in all 4 quadrants. No distention noted. No organomegaly noted. No visible injury noted. Back: No CVA tenderness. Full range of motion noted. Skin: Skin warm and dry. Normal skin color. Normal skin turgor. No rashes/lesions/lacerations noted. Extremities: No lower extremity edema. Extremities exhibit normal range of motion. Extremities nontender. Neuro: Cranial nerve exam: II-XII are grossly intact No motor deficit. No sensory deficit. Reflexes normal. Course Reevaluation(s) Reevaluation #1: 83-year-old male from rehab came in for evaluation of multiple fall patient found to be in acute renal insufficiency with no acute obstructive uropathy on CT likely secondary to dehydration will admit for hydration and monitoring renal function. Time: 23:53 Medications Administered Generic Name Dose Route Start Last Admin Trade Name Freq PRN Reason Stop Dose Admin Heparin Sodium (Porcine) 5,000 unit 10/04/23 01:30 10/04/23 02:05 Heparin Sodium,Porcine 5,000 Unit/Ml Vial SUBCUT 5,000 unit BID CJ Administration Lactated Ringer's 1,000 mls @ 100 mls/hr 10/04/23 01:30 10/04/23 02:04 Lr IVCONT 100 mls/hr .Q10H CJ Administration Discontinued Medications Generic Name Dose Route Start Last Admin Trade Name Freq PRN Reason Stop Dose Admin Sodium Chloride 1,000 mls @ 999 mls/hr 10/03/23 23:49 10/04/23 02:04 Ns IV 10/04/23 00:49 Infused .Q1H1M ONE Infusion Medical Decision Making Differential Diagnosis Differential Diagnoses: The differential diagnosis associated with the presentation includes (Electrolyte abnormality, severe anemia, acute renal insufficiency, ACS) Admission/Observation Consideration of admission/observation: Escalation of care including admission/observation considered Consult Healthcare Provider Management of the patient was discussed with: Hospitalist (Dr. Romero) Lab Data MDM Lab Attestation statement: I reviewed the patient's lab results. 10/03/23 20:49 10/03/23 20:49 Labs: Lab Results 10/03/23 10/04/23 Range/Units 20:49 00:17 WBC 8.4 (4.8-10.8) X10*3/uL RBC 3.84 L (4.60-5.80) X10*6/uL Hgb 11.7 L (14.0-18.0) g/dl Hct 35.1 L (42.0-52.0) % MCV 91.4 (80.0-98.0) fL MCH 30.5 (27.0-33.0) pg MCHC 33.3 (31.0-36.0) g/dl RDW 13.8 (11.0-16.0) % Plt Count 451 H D (160-400) X10*3/uL MPV 10.1 (9.4-12.4) fL Immature Gran % (Auto) 1.2 H (0.0-0.4) % Neut % (Auto) 79.6 H (45-73) % Lymph % (Auto) 4.3 L (20-40) % [place] % (Auto) 13.9 H (2-11) % Eos % (Auto) 0.4 (0-4) % Baso % (Auto) 0.6 (0-2) % Lymph # (Auto) 0.4 L (1.2-4.9) X10*3/uL [place] # (Auto) 1.2 (0.1-1.2) X10*3/uL Eos # (Auto) 0.0 (0.0-0.4) X10*3/uL Baso # (Auto) 0.1 (0.0-0.2) X10*3/uL Abs Immat Gran (auto) 0.10 H (0.00-0.03) X10*3/uL Absolute Neuts (auto) 6.7 (2.0-8.3) x10*3/uL Absolute Nucleated RBC 0.000 (0.0-0.012) X10*3/uL Nucleated RBC % (auto) 0.0 (0.0-0.2) /100WBC Sodium 136 (135-145) mmol/L Potassium 4.8 D (3.3-5.1) mmol/L Chloride 105 (96-108) mmol/L Carbon Dioxide 21 L (22-29) mmol/L Anion Gap 15 (12-20) BUN 46 H (9-16) mg/dL Creatinine 2.04 H (0.5-1.4) mg/dL Estim Creat Clear Calc 24.7 Estimated GFR 31 Random Glucose 140 H (60-115) mg/dL Calcium 8.8 (8.4-10.2) mg/dL Total Bilirubin 0.2 (0.0-1.0) mg/dL AST 25 (5-37) U/L ALT 32 (0-40) U/L Alkaline Phosphatase 89 (39-117) U/L Troponin I High Sens 23.0 D (<3.5-35.0) ng/L Total Protein 7.0 (6.5-8.0) g/dL Albumin 3.6 (3.5-5.0) g/dL Urine Color Yellow Urine Appearance Clear Urine pH 5.0 (5.0-9.0) Ur Specific [place] 1.020 (1.005-1.025) Urine Protein Negative (Neg-Trace) mg/dL Urine Glucose (UA) Negative (Negative) mg/dL Urine Ketones Negative (Negative) mg/dL Urine Blood Negative (Negative) Urine Nitrite Negative (Negative) Ur Leukocyte Esterase Negative (Negative) Urine RBC 0-2 (0-2) /HPF Urine WBC 0-5 (0-5) /HPF Ur Squamous Epith Cells 0-2 (0-2) /HPF Urine Bacteria None Seen (None Seen) Hyaline Casts 6-10 (0-2) /LPF Independent Interpretation I performed an independent interpretation of an: EKG (Normal sinus rhythm at 96 beats per minutes, occasional PACs, normal intervals, no ST-T changes.) and CT Scan (Head/C-spine CT: No acute pathology.) Radiology Impression Discussion of test interpretation with radiology: I have reviewed the radiologist's reading. Discharge Plan Discharge Clinical Impression: Acute kidney insufficiency Patient Disposition: Admitted As Inpatient
[2023-10-04] VITALS (9 sets, daily range): BP systolic 118–172; BP diastolic 52–125; PULSE 74–111; RESP 18–20; TEMP 35.9–38.1; O2SAT 93–96; BMI 24.5
[2023-10-04] MEDS: 0.9 % Sodium Chloride 1,000 ML 999 ML IV (00:02)
--- NOTE | 2023-10-04 00:27 | PC.NURSE ---
this rn assisted pt to stand at bedside, pt stood with a two assist and appeared weak as he was standing up. pt denied sob and dizziness.
[2023-10-04 00:31] LABS: Appearance Urine Clear; Color Urine Yellow; Glucose Urine UA Negative (Negative); Leukocyte Esterase Urine Negative (Negative); Nitrite Urine Negative (Negative); Urine Blood Negative (Negative); Urine Ketones Negative (Negative); Urine Protein Negative (Neg-Trace)
[2023-10-04 00:43] LABS: Bacteria Urine None Seen (None Seen); RBC Urine 0-2 /HPF (0-2); Squamous Epithelial Cell Urine 0-2 /HPF (0-2); WBC Urine 0-5 /HPF (0-5)
[2023-10-04] MEDS: Lactated Ringers 1,000 ML 100 ML IVCONT ×3 (02:04→21:35)
[2023-10-04] MEDS: Heparin Sodium,Porcine 5,000 UNIT/ML VIAL 5000 UNIT SUBCUT ×3 (02:05→21:35)
--- NOTE | 2023-10-04 02:10 | PC.NURSE ---
pt medicated per mar, denies pain at this time. pt repositioned in bed and given warm blankets.
--- NOTE | 2023-10-04 02:35 | PC.NURSE ---
[facility] for [facility], informed of pt admission.
--- NOTE | 2023-10-04 03:37 | PC.NURSE ---
Addendum entered by Sabine Alejandre 10/04/23 03:58: report given to c nurse. Original Note: report given to S3 nurse.
--- NOTE | 2023-10-04 06:00 | P.HPHOSP_ITS ---
History of Present Illness Date of Service: 10/04/23 Chief Complaint: multiple falls 83-year-old male past medical history of hypertension chronic anemia a resident of rehab center comes into the hospital after multiple falls at the rehab center. Patient is oriented to self and place, when asked him what brings him to the hospital he says for a checkup, he denies any chest pain, no abdominal pain, no nausea or vomiting, no diarrhea constipation, no recent upper respiratory infection, no urinary symptoms, and no generalized weakness. On arrival to the ED patient hemodynamically stable with a heart rate of 105, blood pressure of 97/42 Labs are significant for WBC of 8.4, hemoglobin of 11.7 which is around his baseline, hematocrit 35.1, creatinine of 2.04 and a BUN of 46 with a baseline of 0.95 and 23 respectively, labs otherwise unremarkable, UA negative Abdomen pelvic CT was done which showed no hydronephrosis or obstructive calculus, mild diffuse mural prominence of the urinary bladder which could be a secondary to chronic outlet obstruction in the setting of an enlarged prostate gland, gallstone versus adenomyomatosis of the gallbladder Head and cervical spine CT unremarkable Given JOESPH patient will be admitted for further management Review of Systems 2 Review of Systems: Yes all other systems are reviewed and are negative [facility] Medical History CKD (chronic kidney disease) Anemia HTN (hypertension) Alcohol intake: former Patient Tobacco Use Status: Former Tobacco user Smoked in Last 30 Days: No Use of substances other than those prescribed or required for medical reasons: No Advance Directives: No Advance Directives Information Provided: No Nutrition Risks: No Nutritional Risk Meds Allergies Allergy/AdvReac Type Severity Reaction Status Date / Time No Known Allergies Allergy Verified 10/03/23 20:13 Active Medications: Current Medications Acetaminophen (Acetaminophen 325 Mg Tablet) 650 mg PO Q6H PRN PRN Reason: Pain, Mild (Pain Scale 1-3) Docusate Sodium (Docusate Sodium 100 Mg Capsule) 100 mg PO DAILY PRN PRN Reason: Constipation Heparin Sodium (Porcine) (Heparin Sodium,Porcine 5,000 Unit/Ml Vial) 5,000 unit SUBCUT BID [facility] Last Admin: 10/04/23 02:05 Dose: 5,000 unit Lactated Ringer's (Lr) 1,000 mls @ 100 mls/hr IVCONT .Q10H COUNTS INCLUDE 234 BEDS AT THE [facility] Last Admin: 10/04/23 02:04 Dose: 100 mls/hr Ondansetron HCl (Ondansetron Hcl 4 Mg/2 Ml Vial) 4 mg IVPUSH Q8H PRN PRN Reason: Nausea and Vomiting Sodium Chloride (0.9 % Sodium Chloride Flush 3 Ml Syringe) 3 ml IVFLUSH QSHIFT COUNTS INCLUDE 234 BEDS AT THE [facility] Home Medications Medication Instructions Recorded Confirmed Last Taken Type acetaminophen 325 mg tablet 650 mg PO NEEDED 10/04/23 10/04/23 Unknown History (Tylenol) docusate sodium 100 mg capsule 100 mg PO BID 10/04/23 10/04/23 Unknown History (Colace) ferrous sulfate 325 mg (65 mg 325 mg PO DAILY 10/04/23 10/04/23 Unknown History iron) tablet folic acid 1 mg tablet 1 mg PO DAILY 10/04/23 10/04/23 Unknown History gabapentin 100 mg tablet 100 mg PO BID 10/04/23 10/04/23 Unknown History hydrochlorothiazide 25 mg tablet 25 mg PO DAILY 10/04/23 10/04/23 Unknown History lisinopril 10 mg tablet 10 mg PO DAILY 10/04/23 10/04/23 Unknown History oxycodone 5 mg capsule 5 mg PO Q4H PRN Pain 10/04/23 10/04/23 Unknown History pyridoxine (vitamin B6) 50 mg 50 mg PO DAILY 10/04/23 10/04/23 Unknown History tablet tamsulosin 0.4 mg capsule 0.4 mg PO DAILY 10/04/23 10/04/23 Unknown History thiamine HCl (vitamin B1) 100 mg 100 mg PO DAILY 10/04/23 10/04/23 Unknown History tablet Physical Exam 2 Vital Signs and Narrative: Vital Signs: Last Vital Signs Temp 99.0 F 10/04/23 03:58 Pulse 82 10/04/23 03:58 Resp 18 10/04/23 03:58 BP 146/67 H 10/04/23 03:58 Pulse Ox 95 10/04/23 03:58 O2 Del Method Room Air 10/04/23 03:58 BMI result Body Mass Index 24.5 Const: General: cooperative and no acute distress O rientation/consciousness: patient oriented x3 Eyes: General: appearance normal, both eyes and all related structures Resp: Effort & Inspection: normal respiratory effort Auscultation: clear to auscultation bilaterally Cardio: Rate: regular rate Rhythm: regular rhythm GI: Other: Abdomen is soft, nontender, no rebound or guarding Palpation (GI): Soft to palpation Auscultation: normal bowel sounds Skin: General skin exam: no rashes or lesions noted Neuro: General: patient oriented x3 Cognition (Neuro): normal cognition Extrem: General: Yes normal to inspection and Yes no pedal edema Results Labs 10/03/23 20:49 10/03/23 20:49 Labs: Laboratory Results - last 24 hr 10/03/23 10/04/23 20:49 00:17 MCV 91.4 MCH 30.5 MCHC 33.3 RDW 13.8 Plt Count 451 H D MPV 10.1 Immature Gran % (Auto) 1.2 H Neut % (Auto) 79.6 H Lymph % (Auto) 4.3 L Steele % (Auto) 13.9 H Eos % (Auto) 0.4 Baso % (Auto) 0.6 Lymph # (Auto) 0.4 L Steele # (Auto) 1.2 Eos # (Auto) 0.0 Baso # (Auto) 0.1 Abs Immat Gran (auto) 0.10 H Absolute Neuts (auto) 6.7 Absolute Nucleated RBC 0.000 Nucleated RBC % (auto) 0.0 Anion Gap 15 Estim Creat Clear Calc 24.7 Estimated GFR 31 Random Glucose 140 H Calcium 8.8 Total Bilirubin 0.2 AST 25 ALT 32 Alkaline Phosphatase 89 Total Protein 7.0 Albumin 3.6 Urine Color Yellow Urine Appearance Clear Urine pH 5.0 Ur Specific [place] 1.020 Urine Protein Negative Urine Glucose (UA) Negative Urine Ketones Negative Urine Blood Negative Urine Nitrite Negative Ur Leukocyte Esterase Negative Urine RBC 0-2 Urine WBC 0-5 Ur Squamous Epith Cells 0-2 Urine Bacteria None Seen Hyaline Casts 6-10 Imaging Radiologist's Impressions: Impressions Cervical Spine CT 10/03/23 22:02 IMPRESSION: 1. No acute intracranial pathology. 2. No CT evidence of acute cervical spine fracture or traumatic subluxation. 3. No significant change since prior study dated 09/26/2023. Head CT 10/03/23 22:02 IMPRESSION: 1. No acute intracranial pathology. 2. No CT evidence of acute cervical spine fracture or traumatic subluxation. 3. No significant change since prior study dated 09/26/2023. Abdomen/Pelvis CT 10/04/23 00:40 IMPRESSION: 1. No hydronephrosis or obstructing calculus. 2. Mild diffuse mural prominence of the urinary bladder, which could be secondary to chronic outlet obstruction in the setting of an enlarged prostate gland. Cystitis could have a similar appearance. 3. Suggestion of gallstone versus adenomyomatosis of the gallbladder fundus. 4. Small hiatal hernia. Assessment and Plan (1) Acute kidney insufficiency: Status: Acute (2) Frequent falls: Status: Acute Plan 83-year-old male past medical history of hypertension, BPH, presents the hospital after frequent falls at rehab center # JOESPH - unclear etiology - possibly secondary to post obstruction given the findings in the CT scan of possible bladder outlet obstruction - will treat with IV fluids - monitor for retention - follow BMP # frequent falls - unclear etiology - PT OT prior to discharge # hypertension - stable - Continue antihypertensives # BPH - continue tamsulosin - will obtain bladder scan DVT prophylaxis: Heparin subQ Quality Stroke Does the patient have a stroke diagnosis?: No VTE Prior VTE?: No VTE Risk Level:: Medical - moderate - high VTE Device Contraindication: Treatment Not Indicated VTE Drug Contraindication: N/A - Med Ordered
[2023-10-04 06:26] LABS: MANUAL DIFF FLAG NO
[2023-10-04 06:44] LABS: Basophils Percent Auto 0.6 % (0-2); Eosinophils Percent Auto 0.8 % (0-4); Hematocrit 34.7 % (42.0-52.0); Hemoglobin 11.2 g/dl (14.0-18.0); Imm Gran Abs Auto 0.07 X10*3/uL (0.00-0.03); Imm Gran Pct Auto 1.3 % (0.0-0.4); Lymphocytes Absolute Auto 0.3 X10*3/uL (1.2-4.9); Lymphocytes Percent Auto 6.4 % (20-40); Mean Corpuscular HGB Conc 32.3 g/dl (31.0-36.0); Mean Corpuscular Hemoglobin 29.9 pg (27.0-33.0); Mean Corpuscular Volume 92.8 fL (80.0-98.0); Mean Platelet Volume 10.6 fL (9.4-12.4); Neutrophils Absolute Auto 3.9 x10*3/uL (2.0-8.3); Neutrophils Percent Auto 72.9 % (45-73); Platelet Count 426 X10*3/uL (160-400); Red Blood Count 3.74 X10*6/uL (4.60-5.80); White Blood Count 5.3 X10*3/uL (4.8-10.8)
[2023-10-04 06:47] LABS: Alanine Aminotransferase 28 U/L (0-40); Albumin Level 3.4 g/dL (3.5-5.0); Alkaline Phosphatase 84 U/L (39-117); Anion Gap 12 (12-20); Aspartate Amino Transferase 23 U/L (5-37); Bilirubin Total 0.2 mg/dL (0.0-1.0); Blood Urea Nitrogen 39 mg/dL (9-16); Calcium 8.6 mg/dL (8.4-10.2); Carbon Dioxide 22 mmol/L (22-29); Chloride 106 mmol/L (96-108); Creatinine Clr Calc Pharmacy 37.1; Estimated Glomerular Filt Rate 50; Glucose Random 107 mg/dL (60-115); Potassium 4.6 mmol/L (3.3-5.1); Sodium 135 mmol/L (135-145); Total Protein 6.5 g/dL (6.5-8.0)
--- NOTE | 2023-10-04 08:29 | PHA.MEDREC ---
Pharmacy Consult ? Medication Reconciliation Pharmacy has completed the medication reconciliation. [facility] LIST OBTAIN[facility].
[2023-10-04] MEDS: Gabapentin 100 MG CAPSULE PO ×2 (08:46→21:35)
[2023-10-04] MEDS: Thiamine HCL 100 MG TABLET PO (08:46)
[2023-10-04] MEDS: Tamsulosin HCL 0.4 MG CAPSULE PO (08:46)
[2023-10-04] MEDS: Folic Acid 1 MG TABLET PO (08:46)
[2023-10-04] MEDS: Pyridoxine HCl (Vitamin B6) 50 MG TABLET PO (08:46)
[2023-10-04] MEDS: Acetaminophen 325 MG TABLET 650 MG PO ×2 (08:57→16:19)
--- NOTE | 2023-10-04 09:19 | P.PNIM_ITS ---
Subjective Subjective Date of Service: 10/04/23 Interval History: nose pain Physical Exam 2 Vital Signs: Vital Signs: Last Vital Signs Temp 98.5 F 10/04/23 08:00 Pulse 74 10/04/23 08:00 Resp 20 10/04/23 08:00 BP 149/67 H 10/04/23 08:00 Pulse Ox 96 10/04/23 08:00 O2 Del Method Room Air 10/04/23 08:00 BMI result Body Mass Index 24.5 Appearance: Alert. Oriented X2 disoriented to time. No acute distress. Head: Normal external exam. Normocephalic. Small less than 1 cm superficial laceration to the left forehead. No Duff signs noted. No raccoon eyes noted Eyes: PERRLA. EOMI. Conjunctiva and sclera normal. Eyelids normal. ENT: TM's Normal. Pharynx normal. Uvula midline. Moist mucous membranes. No trismus noted. No drooling noted. No muffled voice noted. Neck: Normal inspection. Neck supple. FROM. No adenopathy. Thyroid Normal. No meningeal signs. No neck mass noted. CVS: Normal heart rate and rhythm. Heart sound normal. No murmurs noted. Pulses normal throughout. Respiratory: No respiratory distress. Painless inspiration. Breath sounds normal. No wheezes/rales/rhonchi noted. Chest nontender. No accessory muscle usage noted or decreased air movement noted. Abdomen: Soft and nontender. Bowel sounds normal in all 4 quadrants. No distention noted. No organomegaly noted. No visible injury noted. Back: No CVA tenderness. Full range of motion noted. Skin: Skin warm and dry. Normal skin color. Normal skin turgor. No rashes/lesions/lacerations noted. Extremities: No lower extremity edema. Extremities exhibit normal range of motion. Extremities nontender. Neuro: Cranial nerve exam: II-XII are grossly intact No motor deficit. No sensory deficit. Reflexes normal. Objective Data Active Medications Acetaminophen (Acetaminophen 325 Mg Tablet) 650 mg PO Q6H PRN PRN Reason: Pain, Mild (Pain Scale 1-3) Last Admin: 10/04/23 08:57 Dose: 650 mg Documented By: PHANLYM Docusate Sodium (Docusate Sodium 100 Mg Capsule) 100 mg PO DAILY PRN PRN Reason: Constipation Folic Acid (Folic Acid 1 Mg Tablet) 1 mg PO DAILY [facility] Last Admin: 10/04/23 08:46 Dose: 1 mg Documented By: MARNI Gabapentin (Gabapentin 100 Mg Capsule) 100 mg PO BID [facility] Last Admin: 10/04/23 08:46 Dose: 100 mg Documented By: MARNI Heparin Sodium (Porcine) (Heparin Sodium,Porcine 5,000 Unit/Ml Vial) 5,000 unit SUBCUT BID [facility] Last Admin: 10/04/23 08:46 Dose: 5,000 unit Documented By: MARNI Lactated Ringer's (Lr) 1,000 mls @ 100 mls/hr IVCONT .Q10H [facility] Last Admin: 10/04/23 02:04 Dose: 100 mls/hr Documented By: MADHURI Ondansetron HCl (Ondansetron Hcl 4 Mg/2 Ml Vial) 4 mg IVPUSH Q8H PRN PRN Reason: Nausea and Vomiting Pyridoxine HCl (Pyridoxine Hcl (Vitamin B6) 50 Mg Tablet) 50 mg PO DAILY [facility] Last Admin: 10/04/23 08:46 Dose: 50 mg Documented By: MARNI Sodium Chloride (0.9 % Sodium Chloride Flush 3 Ml Syringe) 3 ml IVFLUSH QSHIFT [facility] Last Admin: 10/04/23 08:49 Dose: Not Given Documented By: MARNI Non-Admin Reason: IV Running Tamsulosin HCl (Tamsulosin Hcl 0.4 Mg Capsule) 0.4 mg PO DAILY [facility] Last Admin: 10/04/23 08:46 Dose: 0.4 mg Documented By: MARNI Thiamine HCl (Thiamine Hcl 100 Mg Tablet) 100 mg PO DAILY [facility] Last Admin: 10/04/23 08:46 Dose: 100 mg Documented By: MARNI Labs 10/04/23 06:19 10/04/23 06:19 Labs: Laboratory Results - last 24 hr 10/03/23 10/04/23 10/04/23 20:49 00:17 06:19 MCV 91.4 92.8 MCH 30.5 29.9 MCHC 33.3 32.3 RDW 13.8 14.0 Plt Count 451 H D 426 H MPV 10.1 10.6 Immature Gran % (Auto) 1.2 H 1.3 H Neut % (Auto) 79.6 H 72.9 Lymph % (Auto) 4.3 L 6.4 L [place] % (Auto) 13.9 H 18.0 H Eos % (Auto) 0.4 0.8 Baso % (Auto) 0.6 0.6 Lymph # (Auto) 0.4 L 0.3 L [place] # (Auto) 1.2 1.0 Eos # (Auto) 0.0 0.0 Baso # (Auto) 0.1 0.0 Abs Immat Gran (auto) 0.10 H 0.07 H Absolute Neuts (auto) 6.7 3.9 Absolute Nucleated RBC 0.000 0.000 Nucleated RBC % (auto) 0.0 0.0 Anion Gap 15 12 Estim Creat Clear Calc 24.7 37.1 Estimated GFR 31 50 Random Glucose 140 H 107 Calcium 8.8 8.6 Total Bilirubin 0.2 0.2 AST 25 23 ALT 32 28 Alkaline Phosphatase 89 84 Total Protein 7.0 6.5 Albumin 3.6 3.4 L Urine Color Yellow Urine Appearance Clear Urine pH 5.0 Ur Specific [place] 1.020 Urine Protein Negative Urine Glucose (UA) Negative Urine Ketones Negative Urine Blood Negative Urine Nitrite Negative Ur Leukocyte Esterase Negative Urine RBC 0-2 Urine WBC 0-5 Ur Squamous Epith Cells 0-2 Urine Bacteria None Seen Hyaline Casts 6-10 Assessment and Plan (1) Frequent falls: Status: Acute Plan 83M PMH htn, bph, presented with falls, found to have neeta neeta likely dehydration, hypotension improving with ivf, monitor falls ?orthostatic hypotension PT eval htn holding antihypertensives for now bph flomax dvt prophyalxis - hep sq full code reason for continued hospitalization:ivf for neeta Quality Stroke Does the patient have a stroke diagnosis?: No VTE Prior VTE?: No VTE Risk Level:: Medical - moderate - high VTE Device Contraindication: Treatment Not Indicated VTE Drug Contraindication: N/A - Med Ordered
[2023-10-04 17:15] LABS: Appearance Urine Clear; Color Urine Yellow; Glucose Urine UA Negative (Negative); Leukocyte Esterase Urine Negative (Negative); Nitrite Urine Negative (Negative); PH 5.5 (5.0-9.0); Specific Gravity - Urine 1.015 (1.005-1.025); Urine Blood Negative (Negative); Urine Ketones Negative (Negative); Urine Protein Negative (Neg-Trace)
[2023-10-05 03:32] VITALS: BP 137/64; PULSE 70; RESP 16; TEMP 37.2; O2SAT 96
[2023-10-05 07:21] VITALS: BP 153/71; PULSE 71; RESP 20; TEMP 37; O2SAT 96
[2023-10-05 07:32] LABS: Hematocrit 34.1 % (42.0-52.0); Hemoglobin 11.2 g/dl (14.0-18.0); Mean Corpuscular HGB Conc 32.8 g/dl (31.0-36.0); Mean Corpuscular Hemoglobin 30.6 pg (27.0-33.0); Mean Corpuscular Volume 93.2 fL (80.0-98.0); Mean Platelet Volume 11.1 fL (9.4-12.4); Platelet Count 391 X10*3/uL (160-400); Red Blood Count 3.66 X10*6/uL (4.60-5.80); Red Cell Distribution Width 13.6 % (11.0-16.0); White Blood Count 5.5 X10*3/uL (4.8-10.8)
[2023-10-05 07:50] LABS: Anion Gap 12 (12-20); Blood Urea Nitrogen 21 mg/dL (9-16); Calcium 8.5 mg/dL (8.4-10.2); Carbon Dioxide 21 mmol/L (22-29); Chloride 104 mmol/L (96-108); Creatinine Clr Calc Pharmacy 54.9; Estimated Glomerular Filt Rate > 60; Glucose Fasting 96 mg/dL (60-99); Potassium 4.4 mmol/L (3.3-5.1); Sodium 133 mmol/L (135-145)
--- NOTE | 2023-10-05 09:32 | MHC.CM.PN ---
GAURAV 10/05/23, KATELYN REVIEWED, PT W/JOESPH, PT REPORTS HE HAS A ROOMMATE WHO HE DOES NOT LIKE, PT HAS A CANE AND WALKER AT HOME, IS INDEP W/CARE, NO SERVICES, PT REPORTS HIS PCP IS AT THE [facility] ON [address] AND PT USES THEIR PHARMACY WELL, PT'S GOAL FOR DC IS HOME NO SERVICES. PT REPORTS COVID VACC X6, HAS BEEN EDUCATED ON AND DECLINED TO COMPLETE A HCP AND TASK SENT TO CM OFFICE TO DETERMINE PCP.
[2023-10-05] MEDS: Lactated Ringers 1,000 ML 100 ML IVCONT (09:33)
[2023-10-05] MEDS: Heparin Sodium,Porcine 5,000 UNIT/ML VIAL 5000 UNIT SUBCUT (09:35)
[2023-10-05] MEDS: Pyridoxine HCl (Vitamin B6) 50 MG TABLET PO (09:35)
[2023-10-05] MEDS: Folic Acid 1 MG TABLET PO (09:35)
[2023-10-05] MEDS: Gabapentin 100 MG CAPSULE PO (09:35)
[2023-10-05] MEDS: Tamsulosin HCL 0.4 MG CAPSULE PO (09:35)
[2023-10-05] MEDS: Thiamine HCL 100 MG TABLET PO (09:35)
--- NOTE | 2023-10-05 10:49 | MHC.CM.PN ---
PER HOSPITALIST PT MAY BE MEDICALLY CLEARED FOR DC BACK TO STR AT [facility], PT AWARE AND AGREEABLE TO PLAN, CM AWAITING RESPONSE FROM PV.
--- NOTE | 2023-10-05 10:56 | HO.PM.IMPN ---
Subjective Subjective Date of Service: 10/05/23 Interval History: nose pain Physical Exam Vital Signs: Vital Signs: Last Vital Signs Temp 98.6 F 10/05/23 07:21 Pulse 71 10/05/23 07:21 Resp 20 10/05/23 07:21 BP 153/71 H 10/05/23 07:21 Pulse Ox 96 10/05/23 07:21 O2 Del Method Room Air 10/05/23 07:21 BMI result Body Mass Index 24.5 Appearance: Alert. Oriented X2 disoriented to time. No acute distress. Head: Normal external exam. Normocephalic. Small less than 1 cm superficial laceration to the left forehead. No Duff signs noted. No raccoon eyes noted Eyes: PERRLA. EOMI. Conjunctiva and sclera normal. Eyelids normal. ENT: TM's Normal. Pharynx normal. Uvula midline. Moist mucous membranes. No trismus noted. No drooling noted. No muffled voice noted. Neck: Normal inspection. Neck supple. FROM. No adenopathy. Thyroid Normal. No meningeal signs. No neck mass noted. CVS: Normal heart rate and rhythm. Heart sound normal. No murmurs noted. Pulses normal throughout. Respiratory: No respiratory distress. Painless inspiration. Breath sounds normal. No wheezes/rales/rhonchi noted. Chest nontender. No accessory muscle usage noted or decreased air movement noted. Abdomen: Soft and nontender. Bowel sounds normal in all 4 quadrants. No distention noted. No organomegaly noted. No visible injury noted. Back: No CVA tenderness. Full range of motion noted. Skin: Skin warm and dry. Normal skin color. Normal skin turgor. No rashes/lesions/lacerations noted. Extremities: No lower extremity edema. Extremities exhibit normal range of motion. Extremities nontender. Neuro: Cranial nerve exam: II-XII are grossly intact No motor deficit. No sensory deficit. Reflexes normal. Objective Data Active Medications Acetaminophen (Acetaminophen 325 Mg Tablet) 650 mg PO Q6H PRN PRN Reason: Pain, Mild (Pain Scale 1-3) Last Admin: 10/04/23 16:19 Dose: 650 mg Documented By: PHANLYM Docusate Sodium (Docusate Sodium 100 Mg Capsule) 100 mg PO DAILY PRN PRN Reason: Constipation Folic Acid (Folic Acid 1 Mg Tablet) 1 mg PO DAILY [facility] Last Admin: 10/05/23 09:35 Dose: 1 mg Documented By: AMALIA Gabapentin (Gabapentin 100 Mg Capsule) 100 mg PO BID [facility] Last Admin: 10/05/23 09:35 Dose: 100 mg Documented By: AMALIA Heparin Sodium (Porcine) (Heparin Sodium,Porcine 5,000 Unit/Ml Vial) 5,000 unit SUBCUT BID [facility] Last Admin: 10/05/23 09:35 Dose: 5,000 unit Documented By: AMALIA Lactated Ringer's (Lr) 1,000 mls @ 100 mls/hr IVCONT .Q10H [facility] Last Admin: 10/05/23 09:33 Dose: 100 mls/hr Documented By: AMALIA Ondansetron HCl (Ondansetron Hcl 4 Mg/2 Ml Vial) 4 mg IVPUSH Q8H PRN PRN Reason: Nausea and Vomiting Pyridoxine HCl (Pyridoxine Hcl (Vitamin B6) 50 Mg Tablet) 50 mg PO DAILY [facility] Last Admin: 10/05/23 09:35 Dose: 50 mg Documented By: AMALIA Sodium Chloride (0.9 % Sodium Chloride Flush 3 Ml Syringe) 3 ml IVFLUSH QSHIFT [facility] Last Admin: 10/05/23 07:28 Dose: Not Given Documented By: AMALIA Non-Admin Reason: See Note Tamsulosin HCl (Tamsulosin Hcl 0.4 Mg Capsule) 0.4 mg PO DAILY [facility] Last Admin: 10/05/23 09:35 Dose: 0.4 mg Documented By: AMALIA Thiamine HCl (Thiamine Hcl 100 Mg Tablet) 100 mg PO DAILY [facility] Last Admin: 10/05/23 09:35 Dose: 100 mg Documented By: AMALIA Labs 10/05/23 06:41 10/05/23 06:41 Labs: Laboratory Results - last 24 hr 10/04/23 10/05/23 16:30 06:41 MCV 93.2 MCH 30.6 MCHC 32.8 RDW 13.6 Plt Count 391 MPV 11.1 Absolute Nucleated RBC 0.000 Nucleated RBC % (auto) 0.0 Anion Gap 12 Estim Creat Clear Calc 54.9 Estimated GFR > 60 Fasting Glucose 96 Calcium 8.5 Urine Color Yellow Urine Appearance Clear Urine pH 5.5 Ur Specific [place] 1.015 Urine Protein Negative Urine Glucose (UA) Negative Urine Ketones Negative Urine Blood Negative Urine Nitrite Negative Ur Leukocyte Esterase Negative Assessment and Plan (1) Frequent falls: Status: Acute Plan 83M PMH htn, bph, presented with falls, found to have neeta neeta likely dehydration, hypotension resolved falls ?orthostatic hypotension PT eval htn holding antihypertensives for now bph flomax dvt prophyalxis - hep sq full code reason for continued hospitalization: awaiting pt eval Quality Stroke Does the patient have a stroke diagnosis?: No VTE Prior VTE?: No VTE Risk Level:: Medical - moderate - high VTE Device Contraindication: Treatment Not Indicated VTE Drug Contraindication: N/A - Med Ordered
--- NOTE | 2023-10-05 11:00 | PM.DS ---
DS: Providers Provider Date of Service: 10/05/23 Date of admission: 10/04/23 01:20 Primary care physician: Unknown Physician DS: Diagnosis Discharge Diagnosis (1) Frequent falls: Status: Acute DS: Summary Hospital Course Hospital Course: from initial hpi: 83-year-old male past medical history of hypertension chronic anemia a resident of rehab center comes into the hospital after multiple falls at the rehab center. Patient is oriented to self and place, when asked him what brings him to the hospital he says for a checkup, he denies any chest pain, no abdominal pain, no nausea or vomiting, no diarrhea constipation, no recent upper respiratory infection, no urinary symptoms, and no generalized weakness. On arrival to the ED patient hemodynamically stable with a heart rate of 105, blood pressure of 97/42 Labs are significant for WBC of 8.4, hemoglobin of 11.7 which is around his baseline, hematocrit 35.1, creatinine of 2.04 and a BUN of 46 with a baseline of 0.95 and 23 respectively, labs otherwise unremarkable, UA negative Abdomen pelvic CT was done which showed no hydronephrosis or obstructive calculus, mild diffuse mural prominence of the urinary bladder which could be a secondary to chronic outlet obstruction in the setting of an enlarged prostate gland, gallstone versus adenomyomatosis of the gallbladder Head and cervical spine CT unremarkable Given JOESPH patient will be admitted for further management hospital course: Patient was admitted for acute kidney injury likely due to dehydration and hypotension from blood pressure medications. These were held and he was given IV fluids. Acute kidney injury resolved. Blood pressure normalized. This should continue to be monitored outpatient. If blood pressure continues to be persistently elevated may consider restarting antihypertensives, would likely do better if dosed in evening to avoid daytime hypotension. For BPH he was continued on Flomax. Patient will be discharged back to [facility]. Time Attestation Discharge coordination time: Greater than 30 minutes Quality: Safe Use of Opioids Does Pt have an Active Cancer Diagnosis on the Problem List?: No Quality: Stroke Does the patient have a stroke diagnosis?: No Physical Exam Vital Signs: Vital Signs: Last Vital Signs Temp 98.6 F 10/05/23 07:21 Pulse 71 10/05/23 07:21 Resp 20 10/05/23 07:21 BP 153/71 H 10/05/23 07:21 Pulse Ox 96 10/05/23 07:21 O2 Del Method Room Air 10/05/23 07:21 BMI result Body Mass Index 24.5 Appearance: Alert. Oriented X2 disoriented to time. No acute distress. Head: Normal external exam. Normocephalic. Small less than 1 cm superficial laceration to the left forehead. No Duff signs noted. No raccoon eyes noted Eyes: PERRLA. EOMI. Conjunctiva and sclera normal. Eyelids normal. ENT: TM's Normal. Pharynx normal. Uvula midline. Moist mucous membranes. No trismus noted. No drooling noted. No muffled voice noted. Neck: Normal inspection. Neck supple. FROM. No adenopathy. Thyroid Normal. No meningeal signs. No neck mass noted. CVS: Normal heart rate and rhythm. Heart sound normal. No murmurs noted. Pulses normal throughout. Respiratory: No respiratory distress. Painless inspiration. Breath sounds normal. No wheezes/rales/rhonchi noted. Chest nontender. No accessory muscle usage noted or decreased air movement noted. Abdomen: Soft and nontender. Bowel sounds normal in all 4 quadrants. No distention noted. No organomegaly noted. No visible injury noted. Back: No CVA tenderness. Full range of motion noted. Skin: Skin warm and dry. Normal skin color. Normal skin turgor. No rashes/lesions/lacerations noted. Extremities: No lower extremity edema. Extremities exhibit normal range of motion. Extremities nontender. Neuro: Cranial nerve exam: II-XII are grossly intact No motor deficit. No sensory deficit. Reflexes normal. DS: Data Data Completed and Pending Labs on day of discharge: Laboratory Results - last 24 hr 10/04/23 10/05/23 16:30 06:41 WBC 5.5 RBC 3.66 L Hgb 11.2 L Hct 34.1 L MCV 93.2 MCH 30.6 MCHC 32.8 RDW 13.6 Plt Count 391 MPV 11.1 Absolute Nucleated RBC 0.000 Nucleated RBC % (auto) 0.0 Sodium 133 L Potassium 4.4 Chloride 104 Carbon Dioxide 21 L Anion Gap 12 BUN 21 H Creatinine 0.92 Estim Creat Clear Calc 54.9 Estimated GFR > 60 Fasting Glucose 96 Calcium 8.5 Urine Color Yellow Urine Appearance Clear Urine pH 5.5 Ur Specific [place] 1.015 Urine Protein Negative Urine Glucose (UA) Negative Urine Ketones Negative Urine Blood Negative Urine Nitrite Negative Ur Leukocyte Esterase Negative Discharge Plan Discharge Anticipated Discharge Date/Time: 10/05/23 10:58 Patient Disposition: Xfer SNF Discharge Diagnosis: joesph, falls Referrals: Physician,Unknown J [Primary Care Provider] - 1 Week Discharge Medications: Continued acetaminophen [Tylenol] 325 mg Tablet 650 mg PO Q4H PRN (Reason: FEVER/PAIN) ferrous sulfate 325 mg (65 mg iron) Tablet 325 mg PO DAILY docusate sodium [Colace] 100 mg Capsule 100 mg PO BID PRN (Reason: Constipation) folic acid 1 mg Tablet 1 mg PO DAILY tamsulosin 0.4 mg Capsule 0.4 mg PO DAILY oxycodone 5 mg Capsule 5 mg PO Q4H PRN (Reason: Pain) pyridoxine (vitamin B6) 50 mg Tablet 50 mg PO DAILY thiamine HCl (vitamin B1) 100 mg Tablet 100 mg PO DAILY multivitamin Tablet 1 tab PO DAILY magnesium hydroxide [Milk of Magnesia] 400 mg/5 mL Suspension 30 ml PO Q12H PRN (Reason: Constipation) bisacodyl 10 mg Suppository 10 mg OR Q24H PRN (Reason: Constipation) gabapentin 100 mg Capsule 100 mg PO BID diclofenac sodium 1 % Gel 4 g TOPICAL Q6H PRN (Reason: Pain (Scale Score 4-6)) Rx Instructions: APPLY TO FEET Discontinued lisinopril 10 mg Tablet 10 mg PO DAILY hydrochlorothiazide 25 mg Tablet 25 mg PO DAILY amoxicillin-pot clavulanate [Augmentin] 875-125 mg Tablet 1 tab PO BID Discharge Orders: Discharge Order (Routine); Ordered 10/05/23 Ordered By: Alfa De La Torre Diet: Advance to usual diet Activity on Discharge: As tolerated Stand Alone Forms: Patient Portal Discharge page Care Plan Goals: recovery Health Concerns: joesph, falls Plan of Treatment: rehab, hold bp meds for now, if persistently elevated, consider restarting and dosing at nightime to avoid daytime hypotension Assessment: see above
--- NOTE | 2023-10-05 11:02 | PC.NURSE ---
pt refusing LR fluids
[2023-10-05 11:21] VITALS: BP 154/67; PULSE 69; RESP 20; TEMP 36.9; O2SAT 96
== END 2023-10-05 14:12 | disposition skilled nursing facility (03) ==
LOC: HO.ED 23:58 → HO.EDOVER 10-04 01:25 → HO.IMC 10-04 02:12
PROVIDERS: Admitting Provider Internal Medicine; Emergency Provider Emergency Medicine; PCP Family Medicine; Visit Provider Internal Medicine
DX: N17.9 Acute kidney failure, unspecified (principal); E86.0 Dehydration; M54.2 Cervicalgia; R29.6 Repeated falls; I12.9 Hypertensive chronic kidney disease with stage 1 through stage 4 chronic kidney disease, or unspecified chronic kidney disease; N18.9 Chronic kidney disease, unspecified; D64.9 Anemia, unspecified; N40.0 Benign prostatic hyperplasia without lower urinary tract symptoms; I95.9 Hypotension, unspecified; Z79.899 Other long term (current) drug therapy
CPT/HCPCS: 36415; 70450; 72125; 74176; 80048; 80053; 81001; 81003; 84484; 85025; 85027; 93005; 96360; 96361; 96372; 99222; 99285; J1644; J7120

== ENCOUNTER → 2023-10-04 01:20 | Outpatient (BNV) | payer OTHER, SELFPAY | PROVIDERS: Admitting Provider Internal Medicine; Emergency Provider Emergency Medicine; Visit Provider Internal Medicine | DX: R29.6 Repeated falls (principal) | CPT/HCPCS: 99223; 99239; 99499 ==